=== PATIENT | male | born 1990 | race Caucasian/White ===

== ENCOUNTER 2021-11-07 05:58 | Emergency (ER) | payer OTHER, SELFPAY ==
[2021-11-07 06:03] VITALS: BP 144/84; PULSE 95; RESP 18; TEMP 36.9; O2SAT 97
--- NOTE | 2021-11-07 06:39 | ED.BACK ---
HPI - Back Pain/Injury General Chief Complaint: Back Pain/Injury Stated Complaint: back pain radiating down left leg Time Seen by Provider: 11/07/21 06:28 Source: patient History of Present Illness HPI Narrative: Patient presents with left-sided back pain. Patient ports a history of herniated disc and laminectomy. Reports he usually manages his symptoms with chiropractor. This episode has been lasting for approximately 2 weeks. First noted when he was putting on his pants and he felt a pinch in his back he saws his chiropractor and had a some relief however his symptoms appear to have worsened and he is having a hard time sleeping due to his pain so he came to the ER for evaluation. His pain is on his left back radiates down his bottom and into his foot gets worse with bending and twisting movements. He denies any focal numbness or weakness denies any bowel or bladder incontinence he denies any IV drug use or any major changes in weight. Review of Systems Review of Systems: CONSTITUTIONAL: Denies fever, chills, or sweats. EYES: Denies visual changes, redness, or discharge. ENT: Denies rhinorrhea, congestion, sore throat, or otalgia. CARDIOVASCULAR: Denies chest pain, palpitations, or edema. RESPIRATORY: Denies cough or dyspnea. GASTROINTESTINAL: Denies abdominal pain, nausea, vomiting, or diarrhea. GENITOURINARY: Denies dysuria or hematuria. SKIN: Denies rash or itching. MUSCULOSKELETAL: Denies back pain, joint pain, or myalgia. NEUROLOGIC: Denies headache, numbness, dizziness, or weakness. PSYCHIATRIC: Denies anxiety or depression. All systems reviewed & are unremarkable except as noted in HPI and below Exam Narrative: GENERAL: Well-appearing, well-nourished, and in no acute distress. HEAD: Normocephalic, atraumatic. EYES: PERRLA and EOMI. ENT: Nares clear, no rhinorrhea or epistaxis. Mucous membranes moist. NECK: Supple. No masses. No JVD Back: Mild tenderness palpation on the left paraspinal area around L4 no midline tenderness EXTREMITIES: Normal range of motion. No edema. SKIN: Warm, dry, no rash. NEURO: No focal deficits. Alert and oriented x3. 5 out of 5 strength in the bilateral lower with knee flexion extension and plantar and dorsi flexion PSYCH: Normal mood and affect. Course Vital Signs Vital signs: Vital Signs Temperature 36.9 C 11/07/21 06:03 Pulse Rate 95 11/07/21 06:03 Respiratory Rate 18 11/07/21 06:03 Blood Pressure 144/84 H 11/07/21 06:03 Pulse Oximetry 97 11/07/21 06:03 Temperature 36.9 C 11/07/21 06:03 Pulse Rate 95 11/07/21 06:03 Respiratory Rate 18 11/07/21 06:03 Blood Pressure 144/84 H 11/07/21 06:03 Pulse Oximetry 97 11/07/21 06:03 MDM - Back Pain/Injury MDM Narrative Medical decision making narrative: H&P as above, vss, pt looks clinically well, exam without focal neurological deficits, labs/img considered, symptomatic relief available as needed, on reevaluation pt continues to looks clinically well patient reported feeling improved. Suspect superficial soft tissue back pain, dns cauda equina, conus medullaris, fracture, cord compromise. plan to tx/monitor as op w/ pcm f/u findings/plan discussed with pt, pt agree/comfortable with plan, return precautions given
[2021-11-07] MEDS: KETOROLAC 30 MG/ML VIAL (*BKC) IM (06:51)
[2021-11-07] MEDS: CYCLOBENZAPRINE HCL 10 MG TABLET PO (06:51)
[2021-11-07] MEDS: traMADol HCL (*CRX) 50 MG TABLET PO (07:34)
[2021-11-07 07:53] VITALS: BP 111/76; PULSE 79; RESP 16; O2SAT 95
== END 2021-11-07 07:53 | disposition home or self-care (01) ==
PROVIDERS: Emergency Provider Emergency Medicine; PCP Internal Medicine
DX: M54.9 Dorsalgia, unspecified (principal)
CPT/HCPCS: 96372; 99283; A9270; J1885

== ENCOUNTER 2024-02-24 12:52 | Outpatient (CLI) | payer OTHER, SELFPAY ==
[2024-02-24 16:12] LABS: Lithium < 0.2 mmol/L (0.6-1.2)
== END 2024-02-24 12:53 | disposition home or self-care (01) ==
LOC: ANHLAB 12:57
PROVIDERS: PCP Internal Medicine; Visit Provider Nurse Practitioner Psychiatric/Mental Health
DX: F31.31 Bipolar disorder, current episode depressed, mild (principal); F41.1 Generalized anxiety disorder; R53.83 Other fatigue; R63.4 Abnormal weight loss; L65.8 Other specified nonscarring hair loss; Z79.899 Other long term (current) drug therapy
CPT/HCPCS: 36415; 80178

== ENCOUNTER 2024-04-29 10:48 | Outpatient (CLI) | payer OTHER, SELFPAY ==
[2024-04-29 11:27] LABS: Basophils Percent Auto 0.6 % (0.2-1.2); Eosinophils Absolute Auto 0.1 K/mm3 (0-0.3); Eosinophils Percent Auto 2.1 % (0-4.4); Hematocrit 47.7 % (42.0-52.0); Hemoglobin 16.1 g/dL (14.0-18.0); Immature Granulocyte Absolute 0.02 K/mm3 (0.00-0.031); Immature Granulocyte Percent A 0.3 % (0-0.5); Lymphocytes Absolute Auto 1.43 K/mm3 (0.9-3.2); Mean Corpuscular HGB Conc 33.8 g/dl (32-36); Mean Corpuscular Hemoglobin 31.7 pg (26-34); Mean Corpuscular Volume 93.9 fl (80-100); Mean Platelet Volume 10.1 fl (7.4-10.4); Monocytes Absolute Auto 0.5 K/mm3 (0.1-0.6); Monocytes Percent Auto 7.8 % (2.6-8.5); Neutrophils Absolute Auto 4.6 K/mm3 (1.3-6.7); Neutrophils Percent Auto 68.2 % (45.5-73.1); Platelet Count Result 301 k/mm3 (150-375); Red Blood Count 5.08 M/mm3 (4.6-6.20); Red Cell Distribution Width 12.2 % (11.5-14.5); White Blood Count 6.8 K/mm3 (4.5-10.0)
[2024-04-29 11:46] LABS: Alanine Aminotransferase 22 U/L (6-50); Albumin Level 4.9 g/dL (3.5-5.1); Alkaline Phosphatase 65 U/L (38-126); Anion Gap 6 mmol/L (4-12); Aspartate Amino Transferase 28 U/L (17-59); Bilirubin,Total 0.8 mg/dL (0.2-1.3); Blood Urea Nitrogen 12 mg/dL (9-20); Calcium 9.6 mg/dL (8.4-10.2); Carbon Dioxide 30 mmol/L (22-30); Chloride 106 mmol/L (98-107); Cholesterol 198 mg/dL (0-200); Estimated Glomerular Filt Rate > 60; Glucose 96 mg/dL (65-110); HDL Direct 46 mg/dL; Sodium 142 mmol/L (137-145); Triglycerides 77 mg/dL (<150)
[2024-04-29 11:57] LABS: LDL Cholesterol Direct 113 mg/dL
[2024-04-29 12:06] LABS: Hemoglobin A1C 4.8 % (<5.7)
[2024-04-29 13:47] LABS: Lithium < 0.2 mmol/L (0.6-1.2)
[2024-04-29 13:59] LABS: Free T4 Free Thyroxine 0.97 ng/mL (0.78-2.19)
== END 2024-04-29 10:49 | disposition home or self-care (01) ==
LOC: ANHLAB 10:51
PROVIDERS: PCP Internal Medicine; Visit Provider Nurse Practitioner Psychiatric/Mental Health
DX: F31.31 Bipolar disorder, current episode depressed, mild (principal); F41.1 Generalized anxiety disorder; R45.851 Suicidal ideations; R53.83 Other fatigue; Z79.899 Other long term (current) drug therapy; F12.90 Cannabis use, unspecified, uncomplicated; Z72.89 Other problems related to lifestyle
CPT/HCPCS: 36415; 80053; 80061; 80178; 83036; 84439; 84443; 85025

== ENCOUNTER 2025-06-29 09:52 | Outpatient (CLI) | payer OTHER, SELFPAY ==
--- OUTSIDE RECORDS SUMMARY | 2025-04-24 08:20 | XMS_ITS | Continuity of Care Document ---
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 Role Phone James Saeed MD Unavailable Unavailable Allergies, Adverse Reactions, Alerts Substance Reaction Status Criticality No Known Allergies Active No Inform ation Medications Medication Instructions Dosage Effective Dates (start - stop) Status Comments Truvada 200 mg-300 mg tablet TAKE 1 TABLET BY MOUTH EVERY DAY - Active buspirone 15 mg tablet take 2 tablet by oral route every day 30 MG - Active lithium carbonate 300 mg capsule take 1 capsule by oral route 2 times every day 300 MG - Active Fish Oil 1,200 mg (144 mg-216 mg) capsule daily - Active Vitamin D3 50 mcg (2,000 unit) capsule take 2 capsule by oral route every day 2 capsule - Active vitamin B complex tablet take 1 tablet by oral route every day 1 tablet - Active multivitamin tablet take 1 tablet by ora l route every day 1 tablet - Active Lexapro 20 mg tablet take 1 tablet by or al route every day 20 MG - Active Wellbutrin XL 150 mg 24 hr tablet, extended release take 1 tablet by oral route every day 150 MG - Active Procedures Procedure Date CBC, INC PLATELETS AND DIFFERENTIAL CHLAMYDIA AMPLIFIED PROBE TECHNIQUE NEISERRIA GONORRHOEAE, AMPLIFIED PROBE T ECHNIQUE COMPREHEN METABOLIC PANEL CMP HEPATITIS C ANTIBODY HIV-1 AG W/HIV-1 & HIV-2 AB MED LIST DOCD IN RCRD ROUTINE VENIPUNCTURE IL OFFICE [id number] BODY MASS INDEX DOCD SYST BP LT 130 MM HG DIAST BP < 80 MM HG CHLAMYDIA AMPLIFIED PROBE TECHNIQUE NEISERRIA GONORRHOEAE, AMPLIFIED PROBE T ECHNIQUE HIV-1 AG W/HIV-1 & HIV-2 AB HEPATITIS C ANTIBODY MED LIST DOCD IN RCRD ROUTINE VENIPUNCTURE IL OFFICE [id number] BODY MASS INDEX DOCD SYST BP LT 130 MM HG DIAST BP < 80 MM HG CBC, INC PLATELETS AND DIFFERENTIAL COMPREHEN METABOLIC PANEL CMP CHLAMYDIA AMPLIFIED PROBE TECHNIQUE NEISERRIA GONORRHOEAE, AMPLIFIED PROBE T ECHNIQUE Trichomonas vaginalis, amplified probe t echnique FOLIC ACID (S) (FOLATE) HEPATITIS C ANTIBODY HEMOGLOBIN A1C HGA1C, GLYCO HIV-1 AG W/HIV-1 & HIV-2 AB LIPID PANEL THYROID STIMULATION HORMONE(TSH) 2023 VITAMIN B12 (SERUM) VITAMIN D, 25-HYDROXY ROUTINE VENIPUNCTURE IL OFFICE [id number] BODY MASS INDEX DOCD SYST BP LT 130 MM HG DIAST BP < 80 MM HG GENERAL HEALTH PANEL CHLAMYDIA AMPLIFIED PROBE TECHNIQUE NEISERRIA GONORRHOEAE, AMPLIFIED PROBE T ECHNIQUE HEPATITIS C ANTIBODY HIV-1 AG W/HIV-1 & HIV-2 AB LIPID PANEL VITAMIN B12 (SERUM) VITAMIN D, 25-HYDROXY Pt inelig neg scrn depres ROUTINE VENIPUNCTURE IL PREVENTATIVE-EST: 18-39 BODY MASS INDEX DOCD SYST BP LT 130 MM HG DIAST BP < 80 MM HG GENERAL HEALTH PANEL FOLIC ACID (S) (FOLATE) HEMOGLOBIN A1C HGA1C, GLYCO HIV-1 AG W/HIV-1 & HIV-2 AB LIPID PANEL VITAMIN B12 (SERUM) VITAMIN D, 25-HYDROXY ROUTINE VENIPUNCTURE IL OFFICE [id number] BODY MASS INDEX DOCD SYST BP LT 130 MM HG DIAST BP < 80 MM HG OFFICE [id number] BODY MASS INDEX DOCD SYST BP LT 130 MM HG DIAST BP < 80 MM HG Chlamydia trachomatis and gonorrhoeae, D NA, Amp Probe Technique COMPREHEN METABOLIC PANEL CMP HEPATITIS B CORE IGM ANTIBODY HEPATITIS B SURFACE ANTIGEN (HBSAG) HIV-1 AG W/HIV-1 & HIV-2 AB HEPATITIS C ANTIBODY ROUTINE VENIPUNCTURE IL OFFICE [id number] BODY MASS INDEX DOCD SYST BP LT 130 MM HG DIAST BP < 80 MM HG ROUTINE VENIPUNCTURE IL PLATELET COUNT GENERAL HEALTH PANEL Chlamydia trachomatis and gonorrhoeae, D NA, Amp Probe Technique HIV-1 AG W/HIV-1 & HIV-2 AB LIPID PANEL URINALYSIS, REFLEX (UA) Brief Emotional/Behavioral A ssessment, With Scoring/Doct, Per Stndrd Instrument Clin depression screen doc Brief Emotional/Behavioral A ssessment, With Scoring/Doct, Per Stndrd Instrument ROUTINE VENIPUNCTURE IL OFFICE [id number] BODY MASS INDEX DOCD SYST BP LT 130 MM HG DIAST BP < 80 MM HG THERAPEUTIC, PROPHYLACTIC OR DIAG INJ IN TRA-MUSCLR/SQ Brief Emotional/Behavioral A ssessment, With Scoring/Doct, Per Stndrd Instrument Pt inelig neg scrn depres GENERAL HEALTH PANEL LIPID PANEL NEISERRIA GONORRHOEAE, AMPLIFIED PROBE T ECHNIQUE ROUTINE VENIPUNCTURE PREVENTATIVE-EST: 18-39 BODY MASS INDEX DOCD SYST BP LT 130 MM HG DIAST BP < 80 MM HG INFLUENZA, RAPID INFLUENZA B, RAPID - OFFICE LAB 020 RAPID STREP A Brief Emotional/Behavioral A ssessment, With Scoring/Doct, Per Stndrd Instrument Clin depression screen doc OFFICE [id number] BODY MASS INDEX DOCD SYST BP LT 130 MM HG DIAST BP 80-89 MM HG Brief Emotional/Behavioral A ssessment, With Scoring/Doct, Per Stndrd Instrument Clin depression screen doc GENERAL HEALTH PANEL LIPID PANEL URINALYSIS, REFLEX (UA) ROUTINE VENIPUNCTURE OFFICE [id number] BODY MASS INDEX DOCD SYST BP LT 130 MM HG DIAST BP < 80 MM HG Advance Directives Directive Yes / No Effective Date File Name No Information Encounters Encounter Description Practice Location Reason(s) For Visit Diagnoses Date Provider Providers [facility] [address], [place], [place], [id number] , tel: [phone] [facility] No Information 5 Darlin Ramirez. [address], [id number], . tel:[phone] Referring Provider: Pamela Vu, [address] [place] [address], [address]. tel:[phone] OFFICE UEEQA-RLX-GG PANDED [employer] [place], [address], [place], [place], [address] , tel: [phone] [employer] [place] 3 month (chief complaint) Body mass index [BMI] 34.0-34.9, adultBipolar disorder, unspecifiedOth er levers lace machine operator (current) drug therapy 5 Horace Santiago. [address] [place] [address], [address], [place]. tel:[phone] Referring Provider: Radha David, [address] [place] [address], [address] . tel:[phone] [employer], [address], [place], [place], [address] , tel: [phone] [employer] [facility] No Information Darlin Ramirez. [address], [id number], . tel:[phone] Referring Provider: Sherlyn Crowe, [address] [place] [address], [address] . tel:[phone] OFFICE ZDYDE-GGZ-FY TAILED [facility], [address], [place], [place], [address] , [place] tel: [phone] [facility] 3 mo appt (chief complaint)C hronic Conditions (chief complaint) Body mass index [BMI] 33.0-33.9, adultBipolar disorder, unspecifiedOth er custodial (current) drug therapy Dec-0 5 Amrita Plata. [address] [place] [address], [id number], [place]. tel:[phone] Referring Provider: Radha David, [address] [place] [address], [address] . tel:[phone] [facility], [address], [place], [place], [address] , [place] tel: [phone] [facility] Outpatient Services No Information 4 Darlin Ramirez. [address] [place] [address], [place] [address], [place], [place], [id number], . tel:[phone] Referring Provider: Radha David, [address] [place] [address], [address] . tel:[phone] OFFICE JKRSE-DNT-KX [facility], [address], [place], [place], [address] , [place] tel: [phone] [facility] 3 month appt (chief complaint)C hronic Conditions (chief complaint) Bipolar disorder, unspecifiedVit orozco D deficiency, unspecifiedOth er specified abnormal findings of blood chemistryOther intervertebral disc displacement, lumbar regionBody mass index [BMI] 32.0-32.9, adult Aug- 4 Cas Garcia. [address] [place] [address], [id number], [place]. tel:[phone] Referring Provider: Radha David, [address] [place] [address], [address] . tel:[phone] [facility], [address], [place], [place], [address] , [place] tel: [phone] [facility] Outpatient Services No Information 0 4 Darlindominick Ramirez. [address] [facility], [address], [id number], [place]. tel:[phone] Referring Provider: Pamela Vu, [address] [place] [address], [address]. tel:[phone] PREVENTATIVE -EST: 18-39 [facility], [address], [place], [place], [address] , [place] tel: [phone] [facility] preventive exam (chief complaint)a dditional. (chief complaint)C hronic Conditions (chief complaint)c hronic conditions (chief complaint) Encounter for general adult medical examination without abnormal findingsBody mass index [BMI] 32.0-32.9, adultLumbar herniated discBipolar disorder, unspecifiedOth er specified abnormal findings of blood chemistryVitam in D deficiency, unspecifiedOth er levers lace machine operator (current) drug therapyBite of animal flea 4 Horace Santiago. [address] [place] [address], [address], [place]. tel:[phone] Referring Provider: Radha David, [address] [place] [address], [address] . tel:[phone] [facility], [address], [place], [place], [address] , [place] tel: [phone] [facility] No Information 0 3 Mine Lennon. [address] [place] [address], [id number], [place]. tel:[phone] [facility], [address], [place], [place], [address] , [place] tel: [phone] [facility] Outpatient Services No Information 3 Darlin Ramirez. [address] [facility], [address], [id number], [place]. tel:[phone] Referring Provider: Pamela Vu, [address] [place] [address], [address]. tel:[phone] OFFICE UIWFU-RZM-VV [facility] [employer] [place], [address], [place], [place], [address] , [place] tel: [phone] [employer] [facility] 2 month appt (chief complaint) Body mass index [BMI] 33.0-33.9, adultBipolar disorder, unspecifiedOth er custodial (current) drug therapyContact w and exposure to infect w a sexl mode of transmissHair loss 3 [facility]. [address] [place] [address], [address], [place]. tel:[phone] Referring Provider: Radha David, [address] [place] [address], [address] . tel:[phone] OFFICE DJYBU-YMU-SZ [employer] [place], [address], [place], [place], [address] , [place] tel: [phone] [employer] [facility] 1 month (chief complaint) Body mass index [BMI] 32.0-32.9, adultBipolar disorder, unspecifiedOth er levers lace machine operator (current) drug therapyContact w and exposure to infect w a sexl mode of transmiss 3 Horace Santiago. [address] [place] [address], [address], [place]. tel:[phone] Referring Provider: Radha David, [address] [place] [address], [address] . tel:[phone] [employer] [facility], [address], [place], [place], [address] , [place] tel: [phone] [facility] No Information 3 Darlin Ramirez. [address], [id number], [place]. tel:[phone] Referring Provider: Pamela Vu, [address] [place] [address], [address]. tel:[phone] OFFICE YCXMX-ZST-RY PANDED [facility], [address], [place], [place], [address] , tel: [phone] [facility] 3 month (chief complaint) Body mass index [BMI] 33.0-33.9, adultBipolar disorder, unspecifiedScr eening for STD (sexually transmitted disease)Screen ing for HIV (human immunodeficien cy virus)Human immunodeficien cy virus [HIV] counseling 3 Horace Santiago. [address] [place] [address], [address], [place]. tel:[phone] Referring Provider: Radha David, [address] [place] [address], [address] . tel:[phone] [facility], [address], [place], [place], [address] , [place] tel: [phone] [facility] No Information 3 Mine Lennon. [address] [place] [address], [id number], [place]. tel:[phone] [facility], [address], [place], [place], [address] , [place] tel: [phone] [facility] Hyperlipidemia , unspecifiedBip olar disorder, unspecified 3 Cas Garcia. [address] [place] [address], [id number], [place]. tel:[phone] Referring Provider: Radha David, [address] [place] [address], [address] . tel:[phone] [facility], [address], [place], [place], [address] , [place] tel: [phone] [facility] Outpatient Services No Information 3 Darlin Ramirez. [address] [facility], [place] [address], [place], [place], [address], . tel:[phone] Referring Provider: Radha David, [address] [place] [address], [address] . tel:[phone] [facility], [address], [place], [place], [address] , tel: [phone] [facility] Outpatient Services No Information 3 Darlin Ramirez. [address] [facility], [facility] [address], [place], [place], [address], . tel:[phone] Referring Provider: Sherlyn Crowe, [address] [place] [address], [address] . tel:[phone] OFFICE JNYRX-BEB-YB TAILED [facility], [address], [place], [place], [address] , tel: [phone] [facility] Chronic Conditions (chief complaint)P atient encounter (chief complaint) Body mass index [BMI] 34.0-34.9, adultBipolar disorder, unspecifiedHyp erlipidemia, unspecifiedScr eening for STD (sexually transmitted disease) 3 Amrita Plata. [address] [place] [address], [id number], [place]. tel:[phone] Referring Provider: Radha David, [address] [place] [address], [address] . tel:[phone] [facility], [address], [place], [place], [address] , [place] tel: [phone] [facility] Internal Medicine injection (chief complaint) Contact w and exposure to infect w a sexl mode of transmiss 0 Cas Garcia. [address] [place] [address], [id number], [place]. tel:[phone] Referring Provider: Radha David, [address] [place] [address], [address] . tel:[phone] PREVENTATIVE -EST: 18-39 [facility], [address], [place], [place], [address] , tel: [phone] [facility] Internal Medicine Chronic Conditions (chief complaint) Well adult examContact with and (suspected) exposure to infections with a predominantly sexual mode of transmissionMa jose eduardo depressive disorder, recurrent, moderateOther seasonal allergic rhinitisBody mass index (BMI) 32.0-32.9, adult Nov-0 2-202 0 Cas Garcia. [address] [place] [address], [id number], [place]. tel:[phone] Referring Provider: Radha David, [address] [place] [address], [address] . tel:[phone] [facility], [address], [place], [place], [address] , tel: [phone] [facility] Internal Medicine Sore throat. (chief complaint) Sore throat Nov- 6-202 0 Cas Garcia. [address] [place] [address], [id number], [place]. tel:[phone] Referring Provider: Radha David, [address] [place] [address], [address] . tel:[phone] [facility]ICE [facility], [address], [place], [place], [address] , tel: [phone] [facility] Internal Medicine Chronic Conditions (chief complaint) Body mass index (BMI) 39.0-39.9, adultModerate episode of recurrent major depressive disorderPrimar y insomniaMorbid (severe) obesity due to excess caloriesHyperh idrosis of axillaHyperlip idemia LDL goal <100 7-201 9 Amrita Plata. [address] [place] [address], [id number], [place]. tel:[phone] Referring Provider: Radha David, [address] [place] [address], [address] . tel:[phone] OFFICE XOJZR-VRW-VG MP-MED [facility], [address], [place], [place], [address] , [place] tel: [phone] [facility] Internal Medicine Chronic Conditions (chief complaint)o ther (chief complaint) Body mass index (BMI) 40.0-44.9, adultMorbid (severe) obesity due to excess caloriesDysthy miaPrimary insomniaPerspi ration excessiveChron ic midline low back pain without sciaticaOther chronic painOn pre-exposure prophylaxis for HIV 9 Amrita Plata. [address] [place] [address], [id number], [place]. tel:[phone] Referring Provider: Radha David, [address] [place] [address], [address] . tel:[phone] Family History Family Member Type Diagnosis Age At Onset Maternal grandmother Problem (finding) malignant melan ryne Mother Problem (finding) Alive and well Maternal grandmother Problem (finding) Alive and well Mother Problem (finding) Thyroid disorder Father Problem (finding) Alive and well Brother Problem bipolar Father Problem bipolar Payers Payer name Insurance type Covered green party ID Amanda padilla(s) [employer] OPEN ACCESS CI [id number] Social History Type Description Quantity Date Captured Comments Sex Male Smoking Status No Information Sexual Orientation Bisexual Gender Identity Male Chief Complaint And Reason For Visit No Information Reason For Referral Reason For Referral No Information Plan Of Treatment Date Type Action Status Goal Dietary management education , guidance, and counseling completed Goal Dietary management education , guidance, and counseling completed Goal Dietary management education , guidance, and counseling completed Goal Dietary management education , guidance, and counseling completed Goal Dietary management education , guidance, and counseling completed Goal Dietary management education , guidance, and counseling completed Goal Dietary management education , guidance, and counseling completed Goal Dietary management education , guidance, and counseling completed Goal Dietary management education , guidance, and counseling completed Goal Dietary management education , guidance, and counseling completed Goal Dietary management education , guidance, and counseling completed History Of Present Illness Encounter Date Complaint History Of Dena leal Illness 3 month 3 mo appt 3 mo appt:start Bupropion 150 mg for about a month (Dr. Jewels Bello)sees her once every 3 months depending on medication changePast appt: n/aFuture appt: n/aAdvance directive: doesn't want forms Chronic Conditions *See Chronic Conditions [facility] Chronic Conditions *See Chronic Conditions [facility] 3 month appt pt due for:n/aRe cent visits:Psych - TodayFuture appt:Psych - every 3 months Vaccinations due:COVID - 2 doses at pt's pharmacyCOVID booster - pt refusesFlu - pt refusesTD/TDAP - pt denies recentOutstanding referrals:n/a chronic conditions *See Chronic Conditions [facility] Chronic Conditions *See Chronic Conditions [facility] additional. On exam it was n oted that he had multiple bites on his legs. States that his cats have fleas. He is working on getting this taken care of. States that this is getting better.Pressure was low today. He denies any issues with fatigue or dizziness. Only drink pineapple juice today. Did not eat or drink anything else. States he feels fine. preventive exam Men's preventive visit. Patient Health Questionnaire (PHQ-2) is negative. Patient is on a healthy diet. The patient has no weight gain/loss. Marital status: Single. Relevant history is positive for alcohol use. Relevant history is negative for tobacco use, passive smoke exposure, passive vaping exposure. 2 month appt patient is here for 3 month follow-up after starting PrEP in the form of Truvada.He has bipolar disorder.He follows with nurse practitioner Jewels Bello. He is currently taking buspirone, Lexapro and lithium. Follows every 3 monthsHe started seeing a counselor. He sees every 2 weeks. With respect to PrEp, he is bisexual. He was previously on Truvada. He has been taking this for 3 months and denies any side effects.He has not been sexually active in any form since last OV but he does engage in receiving anal sex and giving oral sex to both male partners. Prior to starting Truvada HIV, hepatitis screening and hep C was negative. He also had negative STI screening 3 months ago.We will continue on HIV and STI screening with follow-ups every 3 months and renal function every 6 months We reviewed the importance of using condoms and signs of HIV.No new sexual partners. Hasn't been sexually active since last office visit. So no STI screening todayPt states that he feels like his bipolar disorder is still currently stable. Has been on lithium since November.Pt states that he is noticing hair loss about a month and a half ago. He states that he has tried changing shampoos and conditioners to see if that was the problem. He is noticing more hair in drain. Not noticing any patches. Pt has a lab order for psychiatrist.Past Appt psychiatrist- March 2023 1 month patient is here for 1 month follow-up after starting PrEP in the form of Truvada.He has bipolar disorder.He follows with nurse practitioner Jewels Bello. He is currently taking buspirone, Lexapro and lithium.He started seeing a counselor. He saw him once and has his second appointment tomorrow. He will be seeing him every 2 weeks. He feels that his bipolar is stable.With respect to PrEp, he is bisexual. He was previously on Truvada. He has been taking this for 1 month and denies any side effects.He has not had any new partners since last office visit but he does engage in receiving anal sex and giving oral sex to both male partners. Prior to starting Truvada HIV, hepatitis screening and hep C was negative. He also had negative STI screening last month as well.We will plan on HIV and STI screening with follow-ups every 3 months and renal function every 6 months after initial 3-month CMP. We reviewed the importance of using condoms and signs of HIV. 3 month Patient is here for 3-month follow-up after reestablishing with our office for the first time after the pandemic.For his bipolar disorder he has established with a psychiatric healthcare provider. He states that it is a nurse practitioner named Jewels Bello. He has continued buspirone 15 mg twice a day and escitalopram 20 mg once a day that was prescribed by our office and was started on lithium twice a day. This was started 2 weeks ago. He has a follow-up appointment next week. He is also scheduled to see a counselor.He feels that his moods are more stable. He feels that he has more depressive symptoms than julio. Denies any SI/HI and is overall feeling better.He was previously on oral PrEP in the form of Truvada. It was previously provided by the health department. This was stopped in 2019. He says that he was on it for several years. He says that [employer], the company, provides a co-pay card that covers up to $3600 a year and this is pretty well covered with insurance. He is bisexual and since his last office visit engaged in receiving anal sex and giving oral sex to both male partners.His last HIV test in October was negative. He also had STI screening at that time.He denies any signs or symptoms of acute illness or infection. He is without fever, STI symptoms like pain or discharge. No LAD on exam. He has no personal or family history of kidney disease.We will test for hepatitis C in addition to routine STI screening. He had lipid levels checked in October.We discussed signs of acute HIV infection including lymphadenopathy, fever, malaise and rash.He understands he will see us back after receiving 1 month of oral PrEP and 3 months after starting treatment then every 3 months. We will continue to screen for bacterial STIs every 3 months. Patient encounter The patient wa s previously receiving Truvada prescription from the local health department.He has been off of this since 2019.He reports trying to stick with one consistent sexual partner due to his bipolar.is requesting STI testing todayHe is also interested in restarting his Truvada but does not wish to return to the health department.is agreeable to optimize his mental health prior to restarting the prescriptionHe denies the use of condoms but was encouraged to use them in order to prevent STIs. Chronic Conditions *See Chronic Conditions HPI injection pt. came in toda y for two Bicillin injection 1,200,000 units per 2 ML lot# [id number] 03/27/20 left hip and right hip. Chronic Conditions *See Chronic Conditions HPI Sore throat. Pt came in with sore throat. tested pt for influenza, and strep on parking lot due to the virus pandemia. Pt vitals are per del, tests results were negative.Per Dr. Cardozo the pt was informed to take tylenol and gargle salt water, and to give us a call after a few days. Chronic Conditions *See Chronic Conditions HPI Chronic Conditions *See Chronic Conditions HPI other The patient pres ents to establish care with PCP. He states he has not seen a previous primary care provider routinely. 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 He is up-to-date on vaccinations. Medical, surgical, and family history was reviewed. Vital signs are normal today. 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 Related to Bite of animal flea Continue on Truvada. 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 Continue on supplement Related to Other specified abnormal findings of blood chemistry call if you develop any back issues or painWe discussed the importance of stretching and ways to avoid injury. Related to Lumbar herniated disc Continue on current medication and follow with your therapist and psychiatric provider. Related to Bipolar disorder, unspecified We will check vitami n D levels today. Continue on supplement. Related to Vitamin D deficiency, unspecified Personal and family medical history reviewed and updated. Medications reviewed and continue as directed. Continue exercise as tolerated and maintain healthy diet. Discussed weight, diet, exercise, immunizations, and healthy lifestyle.flu shot recommended this fall Related to Encounter for general adult medical examination without abnormal findings Disease process Giving encouragement to exercise Related to Body mass index (BMI) 32.0-32.9, adult Dietary management e ducation, guidance, and counseling Related to Body mass index (BMI) 32.0-32.9, adult I did not notice any areas of patches without hair. Keep an eye on this. We will check thyroid function today. Related to Hair loss As above.Call with a ny questions or concernslabs for psychiatry as well as HIV, cmp, chlamydia, gonorrhea, rprReturn in 2 months Related to Contact w and exposure to infect w a sexl mode of transmiss Please continue on t he generic Truvada.we will check kidney function, HIV and sexually transmitted infections.We discussed signs and symptoms of HIV and the importance of using condoms at all times. Related to Other custodial (current) drug therapy continue on current medications and follow-up with your psychiatric nurse practitioner as scheduled.Continue with counseling every 2 weeks Related to Bipolar disorder, unspecified Disease process Dietary management e ducation, guidance, and counseling Related to Body mass index (BMI) 33.0-33.9, adult Giving encouragement to exercise Related to Body mass index (BMI) 33.0-33.9, adult As above.Call with a ny questions or concernsNo labs todayReturn in 2 months Related to Contact w and exposure to infect w a sexl mode of transmiss Please continue on t he generic Truvada.Return in 2 months and we will check kidney function, HIV and sexually transmitted infections.We will check your kidney function every 6 months and he will return every 3 months to check HIV and sexually transmitted infection testing.We discussed signs and symptoms of HIV and the importance of using condoms at all times. Related to Other custodial (current) drug therapy We will continue on current medications and you will follow-up with your psychiatric nurse practitioner in March.Continue with counseling every 2 weeks Related to Bipolar disorder, unspecified Dietary management e ducation, guidance, and counseling Related to Body mass index (BMI) 32.0-32.9, adult Giving encouragement to exercise Related to Body mass index (BMI) 32.0-32.9, adult Disease process We will be doing lab testing prior to restarting Truvada.We will have you come back in 1 month and then again every 3 months after that. Related to Human immunodeficiency virus [HIV] counseling HIV test to be done today.Call with any questions or concernsReturn in 1 month Related to Screening for HIV (human immunodeficiency virus) We will screen today for HIV, chlamydia, gonorrhea, syphilis, Hepatitis C. Related to Screening for STD (sexually transmitted disease) We will continue on current medications and you will follow-up with your psychiatric nurse practitioner.You will be starting counseling.We also discussed the importance of exercise and healthy diet. Related to Bipolar disorder, unspecified Disease process Dietary management e ducation, guidance, and counseling Related to Body mass index (BMI) 33.0-33.9, adult Giving encouragement to exercise Related to Body mass index (BMI) 33.0-33.9, adult as stated aboveWe di scussed restarting your HIV prophylaxis.We will discuss this again at your next follow up.We do recommend using condoms with sexual activity Related to Screening for STD (sexually transmitted disease) We will check your c holesterol levels again today Related to Hyperlipidemia, unspecified I sent prescriptions for Lexapro 10 mg daily and BuSpar 15 mg twice daily to the pharmacy.If you are tolerating the Lexapro, you can increase this to 20 mg in 2 to 3 weeks.Please call me with an update if you need me to send an updated prescription prior to running out.Our behavioral health guidance services coordinator will be contacting you with resources for psychiatry and counseling.Please call the office if you do not tolerate the medications or if you develop suicidal ideations.We will check routine labs today.CBC, CMP, lipid panel, TSH, urinalysis as well as STI testing for HIV, chlamydia, gonorrhea, and syphilis.Please call with questions or concerns prior to next follow-up.Follow-up again in 3 months Related to Bipolar disorder, unspecified Giving encouragement to exercise Related to Body mass index (BMI) 34.0-34.9, adult Dietary management e ducation, guidance, and counseling Related to Body mass index (BMI) 34.0-34.9, adult Disease process try zyrtec over the counter to helpreturn to me yearlycall me with questions or concerns Related to Other seasonal allergic rhinitis Status: Able to self -manage condition. Goals: Your goal is to manage stress. No barriers to goal achievement have been identified.continue with the current medication from Dr. Roesn Related to Major depressive disorder, recurrent, moderate I will look into get ting you the IM dose of PenicillinI will call and let you know tomorroweither we can get it or we can order it from the health department to be delivered Related to Contact with and (suspected) exposure to infections with a predominantly sexual mode of transmission Dietary management e ducation, guidance, and counseling Related to Body mass index (BMI) 32.0-32.9, adult Giving encouragement to exercise Related to Body mass index (BMI) 32.0-32.9, adult Disease process routine yearly labs checked todayI will call you with the resultsreturn to me yearly for your physicalcall me with questions or concerns Practice social distancing to limit your exposure to others who may have the virus but do not have symptoms. This means stay at home. If you do go out, stay at least 6 feet away from others such as in line at the grocery store. Even if you stay at home, use hand forest pathologist and wash your hands frequently. Especially when you get your mail, go to the store, take the trash out and get deliveries. Other people touch these things and the virus can live on objects for several days. Avoid touching your face as this may bring the virus from your hands to a mucosal surface where it can infect your body. Related to Well adult exam We will continue to monitor your cholesterol levels.Follow-up again in 6 months.Continue to work on diet and exercise to improve this.No need to start medication at this time. Related to Hyperlipidemia LDL goal <100 You have lost over 7 pounds since her last appointment.Great job!Keep up the good work.Follow-up again in 6 months so we can recheck your cholesterol levels and weight.Please call the office if there's anything I can assist with. Related to Morbid (severe) obesity due to excess calories I will send a prescr iption for a medicated wipe to help with excessive sweating.I will let you know if this is approved by her insurance company. 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 Rosen at your upcoming appointment.Please call the office if there's anything I can assist with. Related to Primary insomnia Your depression has improved since starting Lexapro.This is managed by Dr. Rosen.Continue your medication as prescribed.Status: Able to self-manage condition. Goals: Your goal is to manage your medicine. Barriers: No barriers to goal achievement have been identified. Related to Moderate episode of recurrent major depressive disorder Dietary management e ducation, guidance, and counseling Related to Body mass index (BMI) 39.0-39.9, adult Weight loss Giving encouragement to exercise Related to Body mass index (BMI) 39.0-39.9, adult Continue to make hea lthy dietary choices and staying hydrated. Related to Morbid (severe) obesity due to excess calories We will check routin e labs today.CBC, CMP, lipid panel, TSH, and urinalysis.You report trying [id number] deodorants before.Please call if if you are interested in receiving Botox injections and would like further direction. Related to Perspiration excessive As per above. Related to Other chronic pain You report improveme nt since your back surgery.Continue seeing your chiropractor and call us if your pain worsens. Related to Chronic midline low back pain without sciatica This is managed by [facility].Continue your medication as prescribed. Related to On pre-exposure prophylaxis for HIV I will send a prescr iption for trazodone 50 mg daily as needed at bedtime for insomnia.As we discussed, I will also recommend trying melatonin again but taking the lowest dose such as a 2 or 3 mg tablet as this is the safest medication to help with sleeping.Hopefully your insomnia will improve once we get your depression and anxiety better managed. Related to Primary insomnia We will start Lexapr o 10 mg daily to better manage your anxiety and depression.As we discussed, this medication can take up to 6 weeks for a full effect.There is also a risk of withdrawal side effects if you abruptly stop the medication.Please call the office if you do not tolerate this or decide you no longer want to take it so we can inform you how to wean off the medication properly.Continue counseling.We will have you follow-up again in 6 weeks to determine how you're doing on the medication.If you decide you would rather Dr. Rosen purchasing manager/sales medications, you can cancel this appointment.Status: Not meeting treatment plan goals. Goals: Your goal is to manage your medicine. Barriers: No barriers to goal achievement have been identified. Related to Dysthymia Giving encouragement to exercise Related to Body mass index (BMI) 40.0-44.9, adult Dietary management e ducation, guidance, and counseling Related to Body mass index (BMI) 40.0-44.9, adult Weight loss Assessments Type Assessment Date No Information Patient Care Teams Name Effective Dates (start - stop) Status Members No Information
--- OUTSIDE RECORDS SUMMARY | 2025-06-29 04:00 | XMS_ITS ---
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 Name Role Phone Radha Cardozo DO Primary Care Provider Unavail able Jewels Bello Unavailable [phone] Allergies No Known Allergies REASON FOR VISIT Follow Up, Follow up psychological reason Medications Medication SIG (Take, Route, Frequency, Duration) Notes Start Date End Date Status Ibuprofen 800 MG Tablet Oral 11/20/2023 Not-Taking Melatonin *Pick strength-form from [employer] for eRX* 11/20/2023 Not-Taking Acetaminophen-Codein e #3 300-30 MG Tablet Oral 11/20/2023 Not-Taking Lexapro 20 MG Tablet Oral 11/20/2023 Not-Taking buPROPion HCl ER (XL) 150 MG Tablet Extended Release 24 Hour TAKE 1 TABLET BY MOUTH DAILY IN THE MORNING; Duration: 30 appointment needed Active EMTRICITABINE 200 MG-TENOFOVIR DISOPROXIL FUMARATE 300 MG TABLET *Reorder from [employer] for eRx and Interaction Alerts* 11/20/2023 Active Wellbutrin XL 150 MG Tablet Extended Release 24 Hour 1 tablet in the morning Orally Once a day; Duration: 30 days 06/29/2025 Active busPIRone HCl 15 MG Tablet 2 tabs in am Oral Once a day; Duration: 30 days 06/29/2025 09/27/2025 Active Escitalopram Oxalate 20 MG Tablet 1 tablet Oral Once a day; Duration: 30 days 06/29/2025 Active Pillager Carbonate 300 MG Capsule 1 capsule Oral Twice a day; Duration: 30 days 06/29/2025 Active Social History Tobacco Use: Social History Observation Description Date Details (start date - stop date) Unknown Sex Assigned At : Social History Observation Description Sex Assigned At Male Social History Miscellaneous: Social Info Question Answer Notes Advance Care Planning Are you your own decision-maker Yes Do you have Power of Soldering Inspector for Health or Medi scarlett? No Household: Social Info Question Answer Notes Household Marital status: single Number of adults in household: 1 Any household pets? Yes 3 cats Drug/Alcohol: Social Info Question Answer Notes Drugs Have you used drugs other than those for medical reasons in the past 12 months? Yes Caffeine Intake: 3-4 cups per day Tobacco Use: Social Info Question Answer Notes Tobacco Control (Standard) Tobacco use: Uses tobacco in other forms Additional Details Category Social Info Options Details Migrated Social History Migrated Social History Alcohol Intake: Occasional 01/26/2023,Tobacco Years: Former smoker 01/26/2023 Drug/Alcohol: Do you smoke marijuana? Admits Do you drink alcohol? Yes, NOT V MARINE OFTEN Vital Signs Blood pressure systolic 115 mm Hg 06/29/20 25 Blood pressure diastolic 71 mm Hg 025 Heart Rate 72 /min 06/29/2025 Respiratory Rate 17 /min 06/29/2025 Height 72.00 in 06/29/2025 Weight 248 lbs 06/29/2025 BMI 33.63 kg/m2 06/29/2025 Height-cm 182.88 cm 06/29/2025 Weight-kg 112.49 kg 06/29/2025 Encounters Encounter Location Date Provider Diagnosis [facility] [employer] [place] [id number] [address] 06/29/2025 Jewels Bello Bipolar disorder, current episode depressed, mild F31.31 ; Generalized anxiety disorder F41.1 ; Suicidal ideations R45.851 ; Other fatigue R53.83 ; 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 Depressed bipolar I disorder - hx discuss IOP programs- [facility] or [facility] patient waiting on IOP to check insurance and schedule Pillager 300 mg twice a day for depression and passive SI - improved SI thoughts Educated on all rx no plans or intent labs ordered - Patient has depression with low motivation and interest and self care, low energy discuss and educated on Wellbutrin- had hx Wellbutrin in past Wellbutrin XL 150 mg daily in am- improved monitor for julio therapy discuss - patient will find new therapist http_s://www.[employer]/milena fui-ecn-xfdmcyio- marijuana-adhd/ http_s://www.caroline .org/About-Mental -Illness/Mental-H ealth-Conditions http_s://[employer]/depressi on/the-cognitive- ozpnplnw-ld-isphe ssion#treatments http__s://www.nim .nih.gov/health/ topics/mental-hea lt-medications http__s://www.nam i.org/About-Menta l-Illness/Treatme nts/Mental-Health -Medications - educated on importance to have labs completed educated on all medications, benefits, side effects and risk, and educated on depression, anxiety, and ADHD, mood d/o and educated on compliance of medications, metabolic and movement d/o education appointment's, continue therapy discussion with patient about course of treatmentand patient instructions. education on serotonin syndrome educated on increase water intake and stay hydrated Lexapro 20 mg daily Pillager use reviewed. Risks include risks of toxicity, arrhythmias, cognitive impairment, changes in muscle coordination, weight gain, thyroid and parathyroid changes, polydipsia and polyuria, alopecia, tremor and teratogenicity ( defects). Recommend avoid in females (use contraception consistently). Routine lab monitoring may be required. Patient consented to treatment. Indications: acute julio (euphoric julio), bipolar prophylaxis, bipolar depression treatment or augmentation, unipolar depression as augmentation with antidepressants Average dose = I,500 mg/day, target serum level 0.8 Pillager is known to reduce risk of suicide. Mechanism of action: inhibits inositol monophosphatase, interfering with 2nd messengers Nuisance Side Effects: sedation, cognitive difficulties, decreased creativity, dry mouth, tremor, increased appetite, weight gain, polydipsia, polyuria, nausea, diarrhea, acne, alopecia Serious Side Effects: Thyroid: hypothyroidism (5%), goiter (3%) Cardiac: decrease in cardiac conduction leading to sick sinus syndrome, blocks SA node Teratogenicity: Ebstein's anomaly 2 in 1,000 Renal: chronic renal insufficiency (after 10-20 years), acute renal failure, polyuria occurs in 50-70% [lithium antagonizes anti-diuretic hormone (ADH)], diabetes insipidus in 10% (treat with amiloride) Drug-drug interactions: increase in lithium: NSAIDs, JESSEE inhibitors, angiotensin II antagonists educated on light box therapy and proper use for SAD continue therapyobtain labs PCP 2. Generalized anxiety disorder - Lexapro 20 mg daily Buspar 15 mg - Patient been taking 2 tabs in am and helped Medication Management and Follow-Up- Plan:- Schedule follow-up appointments every 2-3 months to monitor the patient's response to the medication regimen.- Reinforce the importance of avoiding recreational drug use due to potential neurotoxicity and interactions with prescribed medications. 3. Cannabis dependence -Recommend decrease/stop cannabis use as it can negatively impact mood, motivation, anxiety, sleep, focus/concentrati on/memory (vigilance, elasticity, processing and attention); can also contribute to development of psychosis.Cannabi s/marijuana information:http_ s://urmila.nih.gov/ publications/drug facts/cannabis-ma [facility]ian[facility]arehttp_s://w ww.[facility] hospitala.gov/mar sjautmL14.20: Cannabis dependence, uncomplicated 4. Fatigue -improved 5.Vaping- educted on decreasing vaping and cannabis use Smoking Education Do not smoke. Nicotine and other chemicals in cigarettes and cigars can cause lung damage. Ask your healthcare provider for information if you currently smoke and need help to quit. E-cigarettes or smokeless tobacco still contain nicotine. Talk to your healthcare provider before you use these products. education on decrease to stopping nicotine products and stop smoking hotline given Quit - Yes [place] Tobacco Quitline Call a Smoking Quitline The [employer] [place]'s Smoking Quitline, (8-823-21D-QUIT) Smokefree.gov, which connects you with your State's Quitline, (6-756-EMXWRGL) Veterans Smoking Quitline, (6-082-EGGYKVB) Long-term drug therapy 06/29/2025 Generalized anxiety disorder (ICD-10 - F41.1) Learning About Generalized Anxiety Disorder material was published, Generalized Anxiety Disorder: Care Instructions material was published 1. Depressed bipolar I disorder - hx discuss IOP programs- [facility] [place] or [facility] patient waiting on IOP to check insurance and schedule Pillager 300 mg twice a day for depression and passive SI - improved SI thoughts Educated on all rx no plans or intent labs ordered - Patient has depression with low motivation and interest and self care, low energy discuss and educated on Wellbutrin- had hx Wellbutrin in past Wellbutrin XL 150 mg daily in am- improved monitor for julio therapy discuss - patient will find new therapist http_s://www.[employer]/Prixinglevar jvi-rnb-qlbnodzw- marijuana-adhd/ http_s://www.caroline .org/About-Mental -Illness/Mental-H ealth-Conditions http_s://psychcen eHi [employer]depressi on/the-cognitive- rcivinba-ra-ddwxl ssion#treatments http__s://www.nim h.nih.gov/health/ topics/mental-hea lth-medications http__s://www.nam i.org/About-Menta l-Illness/Treatme nts/Mental-Health -Medications - educated on importance to have labs completed educated on all medications, benefits, side effects and risk, and educated on depression, anxiety, and ADHD, mood d/o and educated on compliance of medications, metabolic and movement d/o education appointment's, continue therapy discussion with patient about course of treatmentand patient instructions. education on serotonin syndrome educated on increase water intake and stay hydrated Lexapro 20 mg daily Pillager use reviewed. Risks include risks of toxicity, arrhythmias, cognitive impairment, changes in muscle coordination, weight gain, thyroid and parathyroid changes, polydipsia and polyuria, alopecia, tremor and teratogenicity ( defects). Recommend avoid in females (use contraception consistently). Routine lab monitoring may be required. Patient consented to treatment. Indications: acute julio (euphoric julio), bipolar prophylaxis, bipolar depression treatment or augmentation, unipolar depression as augmentation with antidepressants Average dose = I,500 mg/day, target serum level 0.8 Pillager is known to reduce risk of suicide. Mechanism of action: inhibits inositol monophosphatase, interfering with 2nd messengers Nuisance Side Effects: sedation, cognitive difficulties, decreased creativity, dry mouth, tremor, increased appetite, weight gain, polydipsia, polyuria, nausea, diarrhea, acne, alopecia Serious Side Effects: Thyroid: hypothyroidism (5%), goiter (3%) Cardiac: decrease in cardiac conduction leading to sick sinus syndrome, blocks SA node Teratogenicity: Ebstein's anomaly 2 in 1,000 Renal: chronic renal insufficiency (after 10-20 years), acute renal failure, polyuria occurs in 50-70% [lithium antagonizes anti-diuretic hormone (ADH)], diabetes insipidus in 10% (treat with amiloride) Drug-drug interactions: increase in lithium: NSAIDs, JESSEE inhibitors, angiotensin II antagonists educated on light box therapy and proper use for SAD continue therapyobtain labs PCP 2. Generalized anxiety disorder - Lexapro 20 mg daily Buspar 15 mg - Patient been taking 2 tabs in am and helped Medication Management and Follow-Up- Plan:- Schedule follow-up appointments every 2-3 months to monitor the patient's response to the medication regimen.- Reinforce the importance of avoiding recreational drug use due to potential neurotoxicity and interactions with prescribed medications. 3. Cannabis dependence -Recommend decrease/stop cannabis use as it can negatively impact mood, motivation, anxiety, sleep, focus/concentrati on/memory (vigilance, elasticity, processing and attention); can also contribute to development of psychosis.Cannabi s/marijuana information:http_ s://urmila.nih.gov/ publications/drug facts/cannabis-ma [facility] healthcaretp_s://w blane.[facility] hospitala.gov/mar gpmbxhP70.20: Cannabis dependence, uncomplicated 4. Fatigue -improved 5.Vaping- educted on decreasing vaping and cannabis use Smoking Education Do not smoke. Nicotine and other chemicals in cigarettes and cigars can cause lung damage. Ask your healthcare provider for information if you currently smoke and need help to quit. E-cigarettes or smokeless tobacco still contain nicotine. Talk to your healthcare provider before you use these products. education on decrease to stopping nicotine products and stop smoking hotline given -Quit - Yes [place] Tobacco Quitline Call a Smoking Quitline The [employer] [place]'s Smoking Quitline, (4-644-36Z-QUIT) Smokefree.gov, which connects you with your State's Quitline, (9-038-SSUIOKV) Veterans Smoking Quitline, (1-949-RGQFCVJ) Long-term drug therapy 06/29/2025 Suicidal ideations (ICD-10 - R45.851) Suicidal Thoughts in a Family Member: Care Instructions material was published, Suicidal Thoughts and Behavior: Care Instructions material was published, Learning About Making a Suicide Safety Plan material was published 1. Depressed bipolar I disorder - hx discuss [place] programs- [facility] [facility] patient waiting on IOP to check insurance and schedule Pillager 300 mg twice a day for depression and passive SI - improved SI thoughts Educated on all rx no plans or intent labs ordered - Patient has depression with low motivation and interest and self care, low energy discuss and educated on Wellbutrin- had hx Wellbutrin in past Wellbutrin XL 150 mg daily in am- improved monitor for julio therapy discuss - patient will find new therapist http_s://www.[employer]/milena qka-xfa-hroqqgha- marijuana-adhd/ http_s://www.caroline .org/About-Mental -Illness/Mental-H ealth-Conditions http_s://psychCarnegie Speech.[employer]/depressi on/the-cognitive- rgsmfali-jg-tbtnr ssion#treatments http__s://www.nim h.nih.gov/health/ topics/mental-hea lth-medications http__s://www.nam i.org/About-Menta l-Illness/Treatme nts/Mental-Health -Medications - educated on importance to have labs completed educated on all medications, benefits, side effects and risk, and educated on depression, anxiety, and ADHD, mood d/o and educated on compliance of medications, metabolic and movement d/o education appointment's, continue therapy discussion with patient about course of treatmentand patient instructions. education on serotonin syndrome educated on increase water intake and stay hydrated Lexapro 20 mg daily Pillager use reviewed. Risks include risks of toxicity, arrhythmias, cognitive impairment, changes in muscle coordination, weight gain, thyroid and parathyroid changes, polydipsia and polyuria, alopecia, tremor and teratogenicity ( defects). Recommend avoid in females (use contraception consistently). Routine lab monitoring may be required. Patient consented to treatment. Indications: acute julio (euphoric julio), bipolar prophylaxis, bipolar depression treatment or augmentation, unipolar depression as augmentation with antidepressants Average dose = I,500 mg/day, target serum level 0.8 Pillager is known to reduce risk of suicide. Mechanism of action: inhibits inositol monophosphatase, interfering with 2nd messengers Nuisance Side Effects: sedation, cognitive difficulties, decreased creativity, dry mouth, tremor, increased appetite, weight gain, polydipsia, polyuria, nausea, diarrhea, acne, alopecia Serious Side Effects: Thyroid: hypothyroidism (5%), goiter (3%) Cardiac: decrease in cardiac conduction leading to sick sinus syndrome, blocks SA node Teratogenicity: Ebstein's anomaly 2 in 1,000 Renal: chronic renal insufficiency (after 10-20 years), acute renal failure, polyuria occurs in 50-70% [lithium antagonizes anti-diuretic hormone (ADH)], diabetes insipidus in 10% (treat with amiloride) Drug-drug interactions: increase in lithium: NSAIDs, JESSEE inhibitors, angiotensin II antagonists educated on light box therapy and proper use for SAD continue therapyobtain labs PCP 2. Generalized anxiety disorder - Lexapro 20 mg daily Buspar 15 mg - Patient been taking 2 tabs in am and helped Medication Management and Follow-Up- Plan:- Schedule follow-up appointments every 2-3 months to monitor the patient's response to the medication regimen.- Reinforce the importance of avoiding recreational drug use due to potential neurotoxicity and interactions with prescribed medications. 3. Cannabis dependence -Recommend decrease/stop cannabis use as it can negatively impact mood, motivation, anxiety, sleep, focus/concentrati on/memory (vigilance, elasticity, processing and attention); can also contribute to development of psychosis.Cannabi s/marijuana information:http_ s://urmila.nih.gov/ publications/drug facts/cannabis-ma cheyennehtjosephine_s://w blane.[facility] hospitala.gov/mar moqkiaI92.20: Cannabis dependence, uncomplicated 4. Fatigue -improved 5.Vaping- educted on decreasing vaping and cannabis use Smoking Education Do not smoke. Nicotine and other chemicals in cigarettes and cigars can cause lung damage. Ask your healthcare provider for information if you currently smoke and need help to quit. E-cigarettes or smokeless tobacco still contain nicotine. Talk to your healthcare provider before you use these products. education on decrease to stopping nicotine products and stop smoking hotline given -Quit - Yes [place] Tobacco Quitline Call a Smoking Quitline The [employer] [place]'s Smoking Quitline, (1-729-59Q-QUIT) Smokefree.gov, which connects you with your State's Quitline, (5-639-CBUHFLB) Veterans Smoking Quitline, (8-189-XBGVAAT) Long-term drug therapy 06/29/2025 Other fatigue (ICD-10 - R53.83) Fatigue: Care Instructions material was published 1. Depressed bipolar I disorder - hx discuss [place] programs- [facility] [facility] patient waiting on IOP to check insurance and schedule Pillager 300 mg twice a day for depression and passive SI - improved SI thoughts Educated on all rx no plans or intent labs ordered - Patient has depression with low motivation and interest and self care, low energy discuss and educated on Wellbutrin- had hx Wellbutrin in past Wellbutrin XL 150 mg daily in am- improved monitor for julio therapy discuss - patient will find new therapist http_s://www.[employer]/milena lvz-utc-sqjepvoq- marijuana-adhd/ http_s://www.caroline .org/About-Mental -Illness/Mental-H ealth-Conditions http_s://psychcen tral.com/depressi on/the-cognitive- kfmghkmc-mf-dfofk ssion#treatments http__s://www.nim h.nih.gov/health/ topics/mental-hea lth-medications http__s://www.nam i.org/About-Menta l-Illness/Treatme nts/Mental-Health -Medications - educated on importance to have labs completed educated on all medications, benefits, side effects and risk, and educated on depression, anxiety, and ADHD, mood d/o and educated on compliance of medications, metabolic and movement d/o education appointment's, continue therapy discussion with patient about course of treatmentand patient instructions. education on serotonin syndrome educated on increase water intake and stay hydrated Lexapro 20 mg daily Pillager use reviewed. Risks include risks of toxicity, arrhythmias, cognitive impairment, changes in muscle coordination, weight gain, thyroid and parathyroid changes, polydipsia and polyuria, alopecia, tremor and teratogenicity ( defects). Recommend avoid in females (use contraception consistently). Routine lab monitoring may be required. Patient consented to treatment. Indications: acute julio (euphoric julio), bipolar prophylaxis, bipolar depression treatment or augmentation, unipolar depression as augmentation with antidepressants Average dose = I,500 mg/day, target serum level 0.8 Pillager is known to reduce risk of suicide. Mechanism of action: inhibits inositol monophosphatase, interfering with 2nd messengers Nuisance Side Effects: sedation, cognitive difficulties, decreased creativity, dry mouth, tremor, increased appetite, weight gain, polydipsia, polyuria, nausea, diarrhea, acne, alopecia Serious Side Effects: Thyroid: hypothyroidism (5%), goiter (3%) Cardiac: decrease in cardiac conduction leading to sick sinus syndrome, blocks SA node Teratogenicity: Ebstein's anomaly 2 in 1,000 Renal: chronic renal insufficiency (after 10-20 years), acute renal failure, polyuria occurs in 50-70% [lithium antagonizes anti-diuretic hormone (ADH)], diabetes insipidus in 10% (treat with amiloride) Drug-drug interactions: increase in lithium: NSAIDs, JESSEE inhibitors, angiotensin II antagonists educated on light box therapy and proper use for SAD continue therapyobtain labs PCP 2. Generalized anxiety disorder - Lexapro 20 mg daily Buspar 15 mg - Patient been taking 2 tabs in am and helped Medication Management and Follow-Up- Plan:- Schedule follow-up appointments every 2-3 months to monitor the patient's response to the medication regimen.- Reinforce the importance of avoiding recreational drug use due to potential neurotoxicity and interactions with prescribed medications. 3. Cannabis dependence -Recommend decrease/stop cannabis use as it can negatively impact mood, motivation, anxiety, sleep, focus/concentrati on/memory (vigilance, elasticity, processing and attention); can also contribute to development of psychosis.Cannabi s/marijuana information:http_ s://urmila.nih.gov/ publications/drug facts/cannabis-ma chey[place]http_s://w ww.[facility].gov/mar ytusvmH59.20: Cannabis dependence, uncomplicated 4. Fatigue -improved 5.Vaping- educted on decreasing vaping and cannabis use Smoking Education Do not smoke. Nicotine and other chemicals in cigarettes and cigars can cause lung damage. Ask your healthcare provider for information if you currently smoke and need help to quit. E-cigarettes or smokeless tobacco still contain nicotine. Talk to your healthcare provider before you use these products. education on decrease to stopping nicotine products and stop smoking hotline given -Quit - Yes [place] Tobacco Quitline Call a Smoking Quitline The [employer] [place]'s Smoking Quitline, (1-940-00E-QUIT) Smokefree.gov, which connects you with your State's Quitline, (5-828-TWEVQYW) Veterans Smoking Quitline, (9-786-PRBCEPB) Long-term drug therapy 06/29/2025 [address] jail (current) drug therapy (ICD-10 - Z79.899) Medication Refill: Care Instructions material was published 1. Depressed bipolar I disorder - hx discuss [place] programs- [place] [facility] patient waiting on IOP to check insurance and schedule Pillager 300 mg twice a day for depression and passive SI - improved SI thoughts Educated on all rx no plans or intent labs ordered - Patient has depression with low motivation and interest and self care, low energy discuss and educated on Wellbutrin- had hx Wellbutrin in past Wellbutrin XL 150 mg daily in am- improved monitor for julio therapy discuss - patient will find new therapist http_s://www.[employer]/milena fno-yuq-lofoacim- marijuana-adhd/ http_s://www.caroline .org/About-Mental -Illness/Mental-H ealth-Conditions http_s://psychcen tral.com/depressi on/the-cognitive- xcpjygdg-kp-fknrf ssion#treatments http__s://www.[facility].nih.gov/health/ topics/mental-hea lth-medications http__s://www.nam i.org/About-Menta l-Illness/Treatme nts/Mental-Health -Medications - educated on importance to have labs completed educated on all medications, benefits, side effects and risk, and educated on depression, anxiety, and ADHD, mood d/o and educated on compliance of medications, metabolic and movement d/o education appointment's, continue therapy discussion with patient about course of treatmentand patient instructions. education on serotonin syndrome educated on increase water intake and stay hydrated Lexapro 20 mg daily Pillager use reviewed. Risks include risks of toxicity, arrhythmias, cognitive impairment, changes in muscle coordination, weight gain, thyroid and parathyroid changes, polydipsia and polyuria, alopecia, tremor and teratogenicity ( defects). Recommend avoid in females (use contraception consistently). Routine lab monitoring may be required. Patient consented to treatment. Indications: acute julio (euphoric julio), bipolar prophylaxis, bipolar depression treatment or augmentation, unipolar depression as augmentation with antidepressants Average dose = I,500 mg/day, target serum level 0.8 Pillager is known to reduce risk of suicide. Mechanism of action: inhibits inositol monophosphatase, interfering with 2nd messengers Nuisance Side Effects: sedation, cognitive difficulties, decreased creativity, dry mouth, tremor, increased appetite, weight gain, polydipsia, polyuria, nausea, diarrhea, acne, alopecia Serious Side Effects: Thyroid: hypothyroidism (5%), goiter (3%) Cardiac: decrease in cardiac conduction leading to sick sinus syndrome, blocks SA node Teratogenicity: Ebstein's anomaly 2 in 1,000 Renal: chronic renal insufficiency (after 10-20 years), acute renal failure, polyuria occurs in 50-70% [lithium antagonizes anti-diuretic hormone (ADH)], diabetes insipidus in 10% (treat with amiloride) Drug-drug interactions: increase in lithium: NSAIDs, JESSEE inhibitors, angiotensin II antagonists educated on light box therapy and proper use for SAD continue therapyobtain labs PCP 2. Generalized anxiety disorder - Lexapro 20 mg daily Buspar 15 mg - Patient been taking 2 tabs in am and helped Medication Management and Follow-Up- Plan:- Schedule follow-up appointments every 2-3 months to monitor the patient's response to the medication regimen.- Reinforce the importance of avoiding recreational drug use due to potential neurotoxicity and interactions with prescribed medications. 3. Cannabis dependence -Recommend decrease/stop cannabis use as it can negatively impact mood, motivation, anxiety, sleep, focus/concentrati on/memory (vigilance, elasticity, processing and attention); can also contribute to development of psychosis.Cannabi s/marijuana information:http_ s://urmila.nih.gov/ publications/drug facts/cannabis-ma [place]http_s://w ww.[facility].gov/mar utcvfrS00.20: Cannabis dependence, uncomplicated 4. Fatigue -improved 5.Vaping- educted on decreasing vaping and cannabis use Smoking Education Do not smoke. Nicotine and other chemicals in cigarettes and cigars can cause lung damage. Ask your healthcare provider for information if you currently smoke and need help to quit. E-cigarettes or smokeless tobacco still contain nicotine. Talk to your healthcare provider before you use these products. education on decrease to stopping nicotine products and stop smoking hotline given 5-Quit - Yes [place] Tobacco Quitline Call a Smoking Quitline The [employer] [place]'s Smoking Quitline, (4-245-99E-QUIT) Smokefree.gov, which connects you with your State's Quitline, (9-888-PISVSCY) Veterans Smoking Quitline, (0-633-OITPRVH) Long-term drug therapy 06/29/2025 Marijuana use (ICD-10 - F12.90) Marijuana Use: Care Instructions material was published, Learning About Cannabis Use Disorder material was published 1. Depressed bipolar I disorder - hx discuss IOP programs- [facility] [place] or [facility] patient waiting on IOP to check insurance and schedule Pillager 300 mg twice a day for depression and passive SI - improved SI thoughts Educated on all rx no plans or intent labs ordered - Patient has depression with low motivation and interest and self care, low energy discuss and educated on Wellbutrin- had hx Wellbutrin in past Wellbutrin XL 150 mg daily in am- improved monitor for julio therapy discuss - patient will find new therapist http_s://www.[employer]/milena tou-fix-lyjescmz- marijuana-adhd/ http_s://www.caroline .org/About-Mental -Illness/Mental-H ealth-Conditions http_s://psychcen eHi Car [employer]all.com/depressi on/the-cognitive- mdfbvwvn-iv-pidyx ssion#treatments http__s://www.nim .nih.gov/health/ topics/mental-hea [facility]-medications http__s://www.nam i.org/About-Menta l-Illness/Treatme nts/Mental-Health -Medications - educated on importance to have labs completed educated on all medications, benefits, side effects and risk, and educated on depression, anxiety, and ADHD, mood d/o and educated on compliance of medications, metabolic and movement d/o education appointment's, continue therapy discussion with patient about course of treatmentand patient instructions. education on serotonin syndrome educated on increase water intake and stay hydrated Lexapro 20 mg daily Pillager use reviewed. Risks include risks of toxicity, arrhythmias, cognitive impairment, changes in muscle coordination, weight gain, thyroid and parathyroid changes, polydipsia and polyuria, alopecia, tremor and teratogenicity ( defects). Recommend avoid in females (use contraception consistently). Routine lab monitoring may be required. Patient consented to treatment. Indications: acute julio (euphoric julio), bipolar prophylaxis, bipolar depression treatment or augmentation, unipolar depression as augmentation with antidepressants Average dose = I,500 mg/day, target serum level 0.8 Pillager is known to reduce risk of suicide. Mechanism of action: inhibits inositol monophosphatase, interfering with 2nd messengers Nuisance Side Effects: sedation, cognitive difficulties, decreased creativity, dry mouth, tremor, increased appetite, weight gain, polydipsia, polyuria, nausea, diarrhea, acne, alopecia Serious Side Effects: Thyroid: hypothyroidism (5%), goiter (3%) Cardiac: decrease in cardiac conduction leading to sick sinus syndrome, blocks SA node Teratogenicity: Ebstein's anomaly 2 in 1,000 Renal: chronic renal insufficiency (after 10-20 years), acute renal failure, polyuria occurs in 50-70% [lithium antagonizes anti-diuretic hormone (ADH)], diabetes insipidus in 10% (treat with amiloride) Drug-drug interactions: increase in lithium: NSAIDs, JESSEE inhibitors, angiotensin II antagonists educated on light box therapy and proper use for SAD continue therapyobtain labs PCP 2. Generalized anxiety disorder - Lexapro 20 mg daily Buspar 15 mg - Patient been taking 2 tabs in am and helped Medication Management and Follow-Up- Plan:- Schedule follow-up appointments every 2-3 months to monitor the patient's response to the medication regimen.- Reinforce the importance of avoiding recreational drug use due to potential neurotoxicity and interactions with prescribed medications. 3. Cannabis dependence -Recommend decrease/stop cannabis use as it can negatively impact mood, motivation, anxiety, sleep, focus/concentrati on/memory (vigilance, elasticity, processing and attention); can also contribute to development of psychosis.Cannabi s/marijuana information:http_ s://urmila.nih.gov/ publications/drug facts/cannabis-ma [place]http_s://w ww.[facility].gov/mar vvmdubS23.20: Cannabis dependence, uncomplicated 4. Fatigue -improved 5.Vaping- educted on decreasing vaping and cannabis use Smoking Education Do not smoke. Nicotine and other chemicals in cigarettes and cigars can cause lung damage. Ask your healthcare provider for information if you currently smoke and need help to quit. E-cigarettes or smokeless tobacco still contain nicotine. Talk to your healthcare provider before you use these products. education on decrease to stopping nicotine products and stop smoking hotline given 324-Quit - Yes [place] Tobacco Quitline Call a Smoking Quitline The [employer] [place]'s Smoking Quitline, (4-273-19A-QUIT) Smokefree.gov, which connects you with your State's Quitline, (5-172-PSIUADM) Veterans Smoking Quitline, (8-425-JWKJFYR) Long-term drug therapy 06/29/2025 Engages in vaping (ICD-10 - Z72.89) 1. Depressed bipolar I disorder - hx discuss IOP programs- [facility] [place] or [facility] patient waiting on IOP to check insurance and schedule Pillager 300 mg twice a day for depression and passive SI - improved SI thoughts Educated on all rx no plans or intent labs ordered - Patient has depression with low motivation and interest and self care, low energy discuss and educated on Wellbutrin- had hx Wellbutrin in past Wellbutrin XL 150 mg daily in am- improved monitor for julio therapy discuss - patient will find new therapist http_s://www.[employer]/milena shj-uxw-cnixdgmk- marijuana-adhd/ http_s://www.caroline .org/About-Mental -Illness/Mental-H ealth-Conditions http_s://[employer]/depressi on/the-cognitive- yjvsumeo-eb-vkceh ssion#treatments http__s://www.[facility].nih.gov/health/ topics/mental-hea lth-medications http__s://www.nam i.org/About-Menta l-Illness/Treatme nts/Mental-Health -Medications - educated on importance to have labs completed educated on all medications, benefits, side effects and risk, and educated on depression, anxiety, and ADHD, mood d/o and educated on compliance of medications, metabolic and movement d/o education appointment's, continue therapy discussion with patient about course of treatmentand patient instructions. education on serotonin syndrome educated on increase water intake and stay hydrated Lexapro 20 mg daily Pillager use reviewed. Risks include risks of toxicity, arrhythmias, cognitive impairment, changes in muscle coordination, weight gain, thyroid and parathyroid changes, polydipsia and polyuria, alopecia, tremor and teratogenicity ( defects). Recommend avoid in females (use contraception consistently). Routine lab monitoring may be required. Patient consented to treatment. Indications: acute julio (euphoric julio), bipolar prophylaxis, bipolar depression treatment or augmentation, unipolar depression as augmentation with antidepressants Average dose = I,500 mg/day, target serum level 0.8 Pillager is known to reduce risk of suicide. Mechanism of action: inhibits inositol monophosphatase, interfering with 2nd messengers Nuisance Side Effects: sedation, cognitive difficulties, decreased creativity, dry mouth, tremor, increased appetite, weight gain, polydipsia, polyuria, nausea, diarrhea, acne, alopecia Serious Side Effects: Thyroid: hypothyroidism (5%), goiter (3%) Cardiac: decrease in cardiac conduction leading to sick sinus syndrome, blocks SA node Teratogenicity: Ebstein's anomaly 2 in 1,000 Renal: chronic renal insufficiency (after 10-20 years), acute renal failure, polyuria occurs in 50-70% [lithium antagonizes anti-diuretic hormone (ADH)], diabetes insipidus in 10% (treat with amiloride) Drug-drug interactions: increase in lithium: NSAIDs, JESSEE inhibitors, angiotensin II antagonists educated on light box therapy and proper use for SAD continue therapyobtain labs PCP 2. Generalized anxiety disorder - Lexapro 20 mg daily Buspar 15 mg - Patient been taking 2 tabs in am and helped Medication Management and Follow-Up- Plan:- Schedule follow-up appointments every 2-3 months to monitor the patient's response to the medication regimen.- Reinforce the importance of avoiding recreational drug use due to potential neurotoxicity and interactions with prescribed medications. 3. Cannabis dependence -Recommend decrease/stop cannabis use as it can negatively impact mood, motivation, anxiety, sleep, focus/concentrati on/memory (vigilance, elasticity, processing and attention); can also contribute to development of psychosis.Cannabi s/marijuana information:http_ s://urmila.nih.gov/ publications/drug facts/cannabis-ma [facility]http_s://w ww.[facility].gov/mar vxlbzpU66.20: Cannabis dependence, uncomplicated 4. Fatigue -improved 5.Vaping- educted on decreasing vaping and cannabis use Smoking Education Do not smoke. Nicotine and other chemicals in cigarettes and cigars can cause lung damage. Ask your healthcare provider for information if you currently smoke and need help to quit. E-cigarettes or smokeless tobacco still contain nicotine. Talk to your healthcare provider before you use these products. education on decrease to stopping nicotine products and stop smoking hotline given 063-Quit - Yes [place] Tobacco Quitline Call a Smoking Quitline The [employer] [place]'s Smoking Quitline, (0-923-35Q-QUIT) Smokefree.gov, which connects you with your State's Quitline, (5-012-NAVCUBL) Veterans Smoking Quitline, (7-896-ZTWTZVP) Long-term drug therapy 06/29/2025 Vitamin D deficiency (ICD-10 - E55.9) 1. Depressed bipolar I disorder - hx discuss [place] programs[place] [facility] patient waiting on IOP to check insurance and schedule Pillager 300 mg twice a day for depression and passive SI - improved SI thoughts Educated on all rx no plans or intent labs ordered - Patient has depression with low motivation and interest and self care, low energy discuss and educated on Wellbutrin- had hx Wellbutrin in past Wellbutrin XL 150 mg daily in am- improved monitor for julio therapy discuss - patient will find new therapist http_s://www.[employer]/tejinderlevar ogz-sqf-fysbkmfp- marijuana-adhd/ http_s://www.caroline .org/About-Mental -Illness/Mental-H ealth-Conditions http_s://psychcen eHi [employer]Tan[employer]depressi on/the-cognitive- mdmproft-to-hmpke ssion#treatments http__s://www.nim .nih.gov/health/ topics/mental-hea lth-medications http__s://www.nam i.org/About-Menta l-Illness/Treatme nts/Mental-Health -Medications - educated on importance to have labs completed educated on all medications, benefits, side effects and risk, and educated on depression, anxiety, and ADHD, mood d/o and educated on compliance of medications, metabolic and movement d/o education appointment's, continue therapy discussion with patient about course of treatmentand patient instructions. education on serotonin syndrome educated on increase water intake and stay hydrated Lexapro 20 mg daily Pillager use reviewed. Risks include risks of toxicity, arrhythmias, cognitive impairment, changes in muscle coordination, weight gain, thyroid and parathyroid changes, polydipsia and polyuria, alopecia, tremor and teratogenicity ( defects). Recommend avoid in females (use contraception consistently). Routine lab monitoring may be required. Patient consented to treatment. Indications: acute julio (euphoric julio), bipolar prophylaxis, bipolar depression treatment or augmentation, unipolar depression as augmentation with antidepressants Average dose = I,500 mg/day, target serum level 0.8 Pillager is known to reduce risk of suicide. Mechanism of action: inhibits inositol monophosphatase, interfering with 2nd messengers Nuisance Side Effects: sedation, cognitive difficulties, decreased creativity, dry mouth, tremor, increased appetite, weight gain, polydipsia, polyuria, nausea, diarrhea, acne, alopecia Serious Side Effects: Thyroid: hypothyroidism (5%), goiter (3%) Cardiac: decrease in cardiac conduction leading to sick sinus syndrome, blocks SA node Teratogenicity: Ebstein's anomaly 2 in 1,000 Renal: chronic renal insufficiency (after 10-20 years), acute renal failure, polyuria occurs in 50-70% [lithium antagonizes anti-diuretic hormone (ADH)], diabetes insipidus in 10% (treat with amiloride) Drug-drug interactions: increase in lithium: NSAIDs, JESSEE inhibitors, angiotensin II antagonists educated on light box therapy and proper use for SAD continue therapyobtain labs PCP 2. Generalized anxiety disorder - Lexapro 20 mg daily Buspar 15 mg - Patient been taking 2 tabs in am and helped Medication Management and Follow-Up- Plan:- Schedule follow-up appointments every 2-3 months to monitor the patient's response to the medication regimen.- Reinforce the importance of avoiding recreational drug use due to potential neurotoxicity and interactions with prescribed medications. 3. Cannabis dependence -Recommend decrease/stop cannabis use as it can negatively impact mood, motivation, anxiety, sleep, focus/concentrati on/memory (vigilance, elasticity, processing and attention); can also contribute to development of psychosis.Cannabi s/marijuana information:http_ s://urmila.nih.gov/ publications/drug facts/cannabis-ma [facility]http_s://w ww.[facility] hospitala.gov/mar dxogzbT54.20: Cannabis dependence, uncomplicated 4. Fatigue -improved 5.Vaping- educted on decreasing vaping and cannabis use Smoking Education Do not smoke. Nicotine and other chemicals in cigarettes and cigars can cause lung damage. Ask your healthcare provider for information if you currently smoke and need help to quit. E-cigarettes or smokeless tobacco still contain nicotine. Talk to your healthcare provider before you use these products. education on decrease to stopping nicotine products and stop smoking hotline given -Quit - Yes [place] Tobacco Quitline Call a Smoking Quitline The [employer] [place]'s Smoking Quitline, (6-397-43S-QUIT) Smokefree.gov, which connects you with your State's Quitline, (6-728-TZVPBYN) Veterans Smoking Quitline, (5-924-KKUTTDH) Long-term drug therapy Plan Of Treatment Medication Medication Name Sig Start Date Stop Date Notes Wellbutrin XL 150 MG Tablet Extended Release 24 Hour 1 tablet in the morning Orally Once a day; Duration: 30 days 06/29/2025 busPIRone HCl 15 MG Tablet 2 tabs in am Oral Once a day; Duration: 30 days 06/29/2025 09/27/2025 Escitalopram Oxalate 20 MG Tablet 1 tablet Oral Once a day; Duration: 30 days 06/29/2025 Pillager Carbonate 300 MG Capsule 1 capsule Oral Twice a day; Duration: 30 days 06/29/2025 Treatment Notes Assessment Notes Bipolar disorder, current ep isode depressed, mild Bipolar Disorder: Care Instructions material was published, Learning About How to Get Help During a Mental Health Crisis material was published, Learning About Mood Disorders material was published Generalized anxiety disorder Learning Ab out Generalized Anxiety Disorder material was published, Generalized Anxiety Disorder: Care Instructions material was published Suicidal ideations Suicidal Thoughts in a Family Member: Care Instructions material was published, Suicidal Thoughts and Behavior: Care Instructions material was published, Learning About Making a Suicide Safety Plan material was published Other fatigue Fatigue: Care Instru ctions material was published Other jail (current) drug therapy M edication Refill: Care Instructions material was published Marijuana use Marijuana Use: Care Instructions material was published, Learning About Cannabis Use Disorder material was published Future Test Test Name Order Date Pillager (Eskalith), Serum 06/29/2025 LIPID PANEL WITH REFLEX TO DIRECT LDL (1 8452) 06/29/2025 COMPREHENSIVE METABOLIC PANEL (01542) CBC (INCLUDES DIFF/PLT) (6399) HEMOGLOBIN A1c (496) 06/29/2025 TSH W/REFLEX TO FT4 (52086) 06/29/2025 Next Appt Details Follow Up: 3 Months, Reason: medication follow up print lab order Provider Name:Jewels Bello , 10/02/2025 08:30:00 AM, [address], [facility] [address], [place], [address], History and Physical Notes * HPI (History of Present Illness) Category Sub-Category Detail Notes Category Not es History of Presenting Problem Depression screening done Depression screening PHQ-9 Little interest or pleasure in doing things: Several days Follow up depression, anxiety chronic since last visit reported since started Wellbutrin I been doing better, I feel I may increase the dose also, and I been more productive and less sad in general and better at work and reviews also trend higher and I feel most part not as frequent sad or down, not hopeless or helpless, not as frequent fleeing thoughts of and no SI, no plan or intent, denies HI. not resltess or fidgety , not anxious and Sleep is really good, 6-9 hours per night. bed and up arounf same time, Appetite is fine, not over eating but not binging. Motivation is better and I manage to not get fine for not mowing grass and doing more around house also. Concentration and focus pretty good Interest is improving, Denies hallucinations/paran oia.no julio . Denies side effects. Medication is good. Depression 3-02/04, anxiety 3-01/05, improved agitation and irritable, Tobacco-vapes ETOH-rarely, 5-6 times/year Marijuana- daily Substance use-cocaine on occasion denies SI/HI no plans or intent Feeling down, depressed, or hopeless: Se veral days Trouble falling or staying asleep, or sl eeping too much: Not at all Feeling tired or having little energy: S everal days Poor appetite or overeating: Several day s Feeling bad about yourself o r that you are a failure, or have let yourself or your family down: Not at all Trouble concentrating on thi ngs, such as reading the newspaper or watching television: Not at all Moving or speaking so slowly that other people could have noticed; or the opposite, being so fidgety or restless that you have been moving around a lot more than usual: Not at all Thoughts that you would be b alice off or of hurting yourself in some way: Not at all Total Score: 4 Interpretation: Minimal Depression Intervention Depression Screening Findings: P ositve Follow-Up for Depression: [facility] health care management, Psychiatric follow-up Suicide Risk Assessment Performed: 06/29 denies SI/HI no plans or intent Depression Screening QIAN-7 (2018 Edition) Feelin g nervous, anxious, or on edge: Not at all Not being able to stop or control worryi ng: Not at all Worrying too much about different things : Not at all Trouble relaxing: Several days Being so restless that it is hard to sit still: Not at all Becoming easily annoyed or irritable: No t at all Feeling afraid as if something awful maria dolores ht happen: Not at all Total QIAN-7 Score: 1 Interpretation of Total: (0 to 4) No Anx iety [place]-Suicide Severity Rating Scale Suicide Risk (CSRS-screener) in the past one month Have you wished you were or wished you could go to sleep and not wake up?: No in the past one month Have y ou actually had any thoughts of killing yourself?: No Have you ever done anything, started to do anything, or prepared to do anything to end your life?: No Examination Category Sub-Category Detail Notes Category Not es Psychiatry Appearance: well-groomed, we ll-nourished, appears stated age Attitude: cooperative Psychomotor activity: within normal rang e Abnormal body movements: none Attention: good Degree of awareness of surroundings: wit hin normal limits Orientation: awake, alert and lnidsay ented x 3 Affect / mood: appropriate, full ra nge Speech / language: appropriate pitch/mo dulation, clear and coherent, normal rate, volume, and articulation (RVR), proper grammar used Insight: fair Judgement: fair Thought process: intact Thought content: appropriate Perceptual disorders: no perceptual diso rder noted Aggression: low Anger control: good Suicidal ideation: chronic passive thou ghts no plan or intent no past attempts Homicidal ideation: none Intellectual functioning: average Impulse control: fair Sexual impulse control: good Memory status: no impairment noted Delusions: no Hallucinations: no Comprehension - Intellectual function: a verage Gait steady Progress Notes * JACKIE NGUYEN LDOB:1990 (35 yo M)Acc No.[id number]:06/29/2025 Patient: JACKIE MONROY Provider: KHOA WESTON :1990 A ge:35 Y S ex:Male Date:06/29/2025 Address:[address] [place], [place] [id number] Pcp:Radha Cardozo DO Subjective: * Chief Complaints: * 1 . Follow Up. 2. Follow up psychological reason. * HPI: D epression Screening: QIAN-7 (2018 Edition) F eeling nervous, anxious, or on edge N ot at all N ot being able to stop or control worrying?Not at all W orrying too much about different things N ot at all T rouble relaxing S everal days B eing so restless that it is hard to sit still N ot at all B ecoming easily annoyed or irritable N ot at all F eeling afraid as if something awful might happen N ot at all T otal QIAN-7 Score 1 I nterpretation of Total ( 0 to 4) No Anxiety [place]-Suicide Severity Rating Scale: Suicide Risk (CSRS-screener) i n the past one month Have you wished you were or wished you could go to sleep and not wake up? N o i n the past one month Have you actually had any thoughts of killing yourself? N o H ave you ever done anything, started to do anything, or prepared to do anything to end your life? N o D epression screening: PHQ-9 L ittle interest or pleasure in doing things?Several days F eeling down, depressed, or hopeless S everal days T rouble falling or staying asleep, or sleeping too much N ot at all F eeling tired or having little energy S everal days P oor appetite or overeating S everal days F eeling bad about yourself or that you are a failure, or have let yourself or your family down N ot at all T rouble concentrating on things, such as reading the newspaper or watching television N ot at all M oving or speaking so slowly that other people could have noticed; or the opposite, being so fidgety or restless that you have been moving around a lot more than usual N ot at all T houghts that you would be better off or of hurting yourself in some way N ot at all T otal Score 4 I nterpretation M inimal Depression Intervention D epression Screening Findings P ositve F ollow-Up for Depression M ental health care management, Psychiatric follow-up S uicide Risk Assessment Performed 1 denies SI/HI no plans or intent Follow up depression, anxiety chronic since last visit reported since started Wellbutrin I been doing better, I feel I may increase the dose also, and I been more productive and less sad in general and better at work and reviews also trend higher and I feel most part not as frequent sad or down, not hopeless or helpless, not as frequent fleeing thoughts of and no S I, no plan or intent, denies HI. not resltess or fidgety , not anxious and Sleep is really good, 6-9 hours per night. bed and up arounf same time, Appetite is fine, not over eating but not binging. Motivation is better and I manage to not get fine for not mowing grass and doing more around house also. Concentration and focus pretty good Interest is improving, Denies hallucinations/paranoia.no julio . Denies side effects. Medication is good. Depression 3-10, anxiety 3-10, improved agitation and irritable, Tobacco-vapes ETOH-rarely, 5-6 times/year Marijuana- daily Substance use-cocaine on occasion denies SI/HI no plans or intent. H istory of Presenting Problem: patient is smoker. Depression screening done. * ROS: P atient reports b ack pain (5 herniated disk) b ut reports no muscle aches, no muscle weakness, no arthralgias/joint pain, no neck pain, and no difficulty walking. He reports mild anxiety and mild depression, no sleep disturbances, no alcohol abuse, no hallucinations, no suicidal thoughts, improved chronic passive thoughts , no plans or intent, no & #160;irritbale, no mood swings, no memory loss, no agitation, He reports weight gain, and no significant weight loss. He reports wears glasses He reports no chest pain, no shortness of breath , no palpitations, no known heart murmur, and no ankle swelling. He reports no cough He reports no abdominal pain, no nausea, no vomiting, no constipation, normal appetite, no diarrhea, and no GERD. He reports no incontinence, no difficulty urinating, no hematuria, and no increased frequency. He reports no loss of consciousness, no weakness, no numbness, no seizures, no dizziness, no migraines, no headaches, no tremor, and no gait dysfunction. He reports no fatigue. P erformance Met: N ormal blood pressure reading documented, follow-up not required ( G8783). * Medical History: * Social History: T obacco Use: T obacco Control (Standard) T obacco use: U ses tobacco in other forms M igrated Social History: M igrated Social History: Alcohol Intake: Occasional 01/26/2023,Tobacco Years: Former smoker 01/26/2023. D rug/Alcohol: D rugs H ave you used drugs other than those for medical reasons in the past 12 months? Y es Caffeine I ntake: 3 -4 cups per day Do you smoke marijuana?: Admits. Do you drink alcohol?: Yes, NOT VERY OFTEN. H ousehold: H ousehold M arital status: s teresa N umber of adults in household: 1 A ny household pets? Y es 3 cats M iscellaneous: A dvance Care Planning A re you your own decision-maker Y es D o you have Power of Soldering Inspector for Health or Medical? N o S ocial History Verified. * Medications: T aking Pillager Carbonate 300 MG Capsule 1 capsule Oral Twice a day , Taking busPIRone HCl 15 MG Tablet 2 tabs in am Oral Once a day , Taking Escitalopram Oxalate 20 MG Tablet 1 tablet Oral Once a day , Taking EMTRICITABINE 200 MG-TENOFOVIR DISOPROXIL FUMARATE 300 MG TABLET , Notes to Pharmacist: *Reorder from [employer] for eRx and Interaction Alerts*, Taking buPROPion HCl ER (XL) 150 MG Tablet Extended Release 24 Hour TAKE 1 TABLET BY MOUTH DAILY IN THE MORNING , Notes to Pharmacist: appointment needed, Not-Taking Lexapro 20 MG Tablet Oral , Not-Taking Melatonin , Notes to Pharmacist: *Pick strength-form from [employer] for eRX*, Not-Taking Ibuprofen 800 MG Tablet Oral , Not-Taking Acetaminophen-Codeine #3 300-30 MG Tablet Oral , Medication List reviewed and reconciled with the patient * Allergies: N .K.D.A. Allergies Verified. Objective: * Vitals: B P:115/71mm Hg, HR:72/min, RR:17/min, Wt:248lbs, Wt-k.49 kg, Ht: 72.00 in, Ht-cm: 182.88 cm, BMI:33.63Index, Body Surface Area: 2.39. * Examination: P sychiatry: Appearance: w ell-groomed, well-nourished, appears stated age. Abnormal body movements: n one. Affect / mood: a ppropriate, full range. Aggression: l ow. Anger control: g ood. Attention: g ood. Attitude: c ooperative. Gait s teady. Homicidal ideation: n one. Suicidal ideation: c hronic passive thoughts no plan or intent no past attempts. Memory status: n o impairment noted. Degree of awareness of surroundings: w ithin normal limits.? Delusions: n o. Hallucinations: n o. Impulse control: f air. Insight: f air. Intellectual functioning: a verage. Comprehension - Intellectual function: a verage. Judgement: f air. Orientation: a wake, alert and oriented x 3. Perceptual disorders: n o perceptual disorder noted. Psychomotor activity: w ithin normal range. Sexual impulse control: g ood. Speech / language: a ppropriate pitch/modulation, clear and coherent, normal rate, volume, and articulation (RVR), proper grammar used. Thought content: a ppropriate. Thought process: i ntact. Assessment: * Assessment: 1. B ipolar disorder, current episode depressed, mild - F31.31 (Primary) 2 .?Generalized anxiety disorder - F41.1 3 . S uicidal ideations - R45.851 ? 4 . O ther fatigue - R53.83 5 . 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 M arijuana use - F12.90 7 . E ngages in vaping - Z72.89 8 . V itamin D deficiency - E55.9 1. Depressed bipolar I disor celeste - hx discuss IOP programs- [facility] [place], [place] or [facility] patient waiting on IOP to check insurance and schedule Pillager 300 mg twice a day for depression and passive SI- improved SI thoughts Educated on all rx no plans or intent labs ordered - Patient has depression with low motivation and interest and self care, low energy discuss and educated on Wellbutrin- had hx Wellbutrin in past W ellbutrin XL 150 mg daily in am- improved monitor for julio therapy discuss - patient will find new therapist http_s://www.TrustGo.Sellplex/yudjehci-umb-gmkufsbi-marijuana-adhd/ http_s://www.caroline.org/Glcyy-Ldwwzj-Foghsam/Disogu-Ydlkka-Wuuuayowwf http_s://psychcentral.com/depression/tbl-xrovdtczm-ohmmbjiv-of-depression#treatm ents http__s://www.[facility].nih.gov/health/topics/ywxcwi-gehfek-vikpezbkmyd http__s://www.caroline.org/Emvjm-Bracbp-Hddnchk/Treatments/Corjij-Ipdzif-Teadafjuiuq - educated on importance to have labs completed educated on all medications, benefits, side effects and risk, and educated on depression, anxiety, and ADHD, mood d/o and educated on compliance of medications, metabolic and movement d/o education appointment's, continue therapy discussion with patient about course of treatmentand patient instructions. education on serotonin syndrome educated on increase water intake and stay hydrated Lexapro 20 mg daily Pillager use reviewed. Risks include risks of toxicity, arrhythmias, cognitive impairment, changes in muscle coordination, weight gain, thyroid and parathyroid changes, polydipsia and polyuria, alopecia, tremor and teratogenicity ( defects). Recommend avoid in females (use contraception consistently). Routine lab monitoring may be required. Patient consented to treatment. Indications: acute julio (euphoric julio), bipolar prophylaxis, bipolar depression treatment or augmentation, unipolar depression as augmentation with antidepressants Average dose = I,500 mg/day, target serum level 0.8 Pillager is known to reduce risk of suicide. Mechanism of action: inhibits inositol monophosphatase, interfering with 2nd messengers Nuisance Side Effects: sedation, cognitive difficulties, decreased creativity, dry mouth, tremor, increased appetite, weight gain, polydipsia, polyuria, nausea, diarrhea, acne, alopecia Serious Side Effects: Thyroid: hypothyroidism (5%), goiter (3%) Cardiac: decrease in cardiac conduction leading to sick sinus syndrome, blocks SA node Teratogenicity: Ebstein's anomaly 2 in 1,000 Renal: chronic renal insufficiency (after 10-20 years), acute renal failure, polyuria occurs in 50-70% [lithium antagonizes anti-diuretic hormone (ADH)], diabetes insipidus in 10% (treat with amiloride) Drug-drug interactions: increase in lithium: NSAIDs, JESSEE inhibitors, angiotensin II antagonists educated on light box therapy and proper use for SAD continue therapyobtain labs PCP 2. Generalized anxiety disorder - Lexapro 20 mg daily Buspar 15 mg - Patient been taking 2 tabs in am and helped Medication Management and Follow-Up- Plan:- Schedule follow-up appointments every 2-3 months to monitor the patient's response to the medication regimen.- Reinforce the importance of avoiding recreational drug use due to potential neurotoxicity and interactions with prescribed medications. 3. Cannabis dependence -Recommend decrease/stop cannabis use as it can negatively impact mood, motivation, anxiety, sleep, focus/concentration/memory (vigilance, elasticity, processing and attention); can also contribute to development of psychosis.Cannabis/marijuana information:http_s://urmila.nih.gov/publications/drugfacts/cannabis- marijuanahttp_s://w ww.[facility].gov/wcxrhilyxF23.20: Cannabis dependence, uncomplicated 4. Fatigue -improved 5.Vaping- educted on decreasing vaping and cannabis use Smoking Education Do not smoke. Nicotine and other chemicals in cigarettes and cigars can cause lung damage. Ask your healthcare provider for information if you currently smoke and need help to quit. E-cigarettes or smokeless tobacco still contain nicotine. Talk to your healthcare provider before you use these products. education on decrease to stopping nicotine products and stop smoking hotline given 7030-Quit - Yes [place] Tobacco Quitline Call a Smoking Quitline The [employer] [place]'s Smoking Quitline, (0-145-50G-QUIT) Smokefree.gov, which connects you with your [facility]'s Quitline, (1-280-OWCLIOQ) [facility] Smoking Quitline, (4-526-JSFHYXE) Long-term drug therapy Plan: * Treatment: 2. G eneralized anxiety disorder Refill busPIRone HCl Tablet, 15 MG, 2 tabs in am, Oral, Once a day, 30 days, 60 Tablet, Refills 2;?Refill Escitalopram Oxalate Tablet, 20 MG, 1 tablet, Oral, Once a day, 30 days, 30, Refills 2.? L AB: Pillager (Eskalith), Serum (Ordered for 06/29/2025) L AB: COMPREHENSIVE METABOLIC PANEL (29308) (Ordered for 06/29/2025) L AB: CBC (INCLUDES DIFF/PLT) (6399) (Ordered for 06/29/2025) L AB: HEMOGLOBIN A1c (496) (Ordered for 06/29/2025) L AB: TSH W/REFLEX TO FT4 (82577) (Ordered for 06/29/2025) L AB: LIPID PANEL WITH REFLEX TO DIRECT LDL (29462) (Ordered for 06/29/2025) Notes: Learning About Generalized Anxiety Disorder material was published, Generalized Anxiety Disorder: Care Instructions material was published 3. S uicidal ideations L AB: Pillager (Eskalith), Serum (Ordered for 06/29/2025) L AB: COMPREHENSIVE METABOLIC PANEL (23500) (Ordered for 06/29/2025) L AB: CBC (INCLUDES DIFF/PLT) (6399) (Ordered for 06/29/2025) L AB: HEMOGLOBIN A1c (496) (Ordered for 06/29/2025) L AB: TSH W/REFLEX TO FT4 (36528) (Ordered for 06/29/2025) L AB: LIPID PANEL WITH REFLEX TO DIRECT LDL (92866) (Ordered for 06/29/2025) Notes: Suicidal Thoughts in a Family Member: Care Instructions material was published, Suicidal Thoughts and Behavior: Care Instructions material was published, Learning About Making a Suicide Safety Plan material was published 4. O ther fatigue L AB: Pillager (Eskalith), Serum (Ordered for 06/29/2025) L AB: COMPREHENSIVE METABOLIC PANEL (46870) (Ordered for 06/29/2025) L AB: CBC (INCLUDES DIFF/PLT) (6399) (Ordered for 06/29/2025) L AB: HEMOGLOBIN A1c (496) (Ordered for 06/29/2025) L AB: TSH W/REFLEX TO FT4 (97691) (Ordered for 06/29/2025) L AB: LIPID PANEL WITH REFLEX TO DIRECT LDL (74393) (Ordered for 06/29/2025) Notes: Fatigue: Care Instructions material was published 5. O ther jail (current) drug therapy L AB: Pillager (Eskalith), Serum (Ordered for 06/29/2025) L AB: COMPREHENSIVE METABOLIC PANEL (23709) (Ordered for 06/29/2025) L AB: CBC (INCLUDES DIFF/PLT) (6399) (Ordered for 06/29/2025) L AB: HEMOGLOBIN A1c (496) (Ordered for 06/29/2025) L AB: TSH W/REFLEX TO FT4 (39422) (Ordered for 06/29/2025) L AB: LIPID PANEL WITH REFLEX TO DIRECT LDL (56703) (Ordered for 06/29/2025) Notes: Medication Refill: Care Instructions material was published 6. M arijuana use L AB: Pillager (Eskalith), Serum (Ordered for 06/29/2025) L AB: COMPREHENSIVE METABOLIC PANEL (79474) (Ordered for 06/29/2025) L AB: CBC (INCLUDES DIFF/PLT) (6399) (Ordered for 06/29/2025) L AB: HEMOGLOBIN A1c (496) (Ordered for 06/29/2025) L AB: TSH W/REFLEX TO FT4 (66794) (Ordered for 06/29/2025) L AB: LIPID PANEL WITH REFLEX TO DIRECT LDL (51005) (Ordered for 06/29/2025) Notes: Marijuana Use: Care Instructions material was published, Learning About Cannabis Use Disorder material was published 7. E ngages in vaping L AB: Pillager (Eskalith), Serum (Ordered for 06/29/2025) L AB: COMPREHENSIVE METABOLIC PANEL (71918) (Ordered for 06/29/2025) L AB: CBC (INCLUDES DIFF/PLT) (6399) (Ordered for 06/29/2025) L AB: HEMOGLOBIN A1c (496) (Ordered for 06/29/2025) L AB: TSH W/REFLEX TO FT4 (07805) (Ordered for 06/29/2025) L AB: LIPID PANEL WITH REFLEX TO DIRECT LDL (95467) (Ordered for 06/29/2025) 8. V itamin D deficiency L AB: Pillager (Eskalith), Serum (Ordered for 06/29/2025) L AB: COMPREHENSIVE METABOLIC PANEL (47339) (Ordered for 06/29/2025) L AB: CBC (INCLUDES DIFF/PLT) (6399) (Ordered for 06/29/2025) L AB: HEMOGLOBIN A1c (496) (Ordered for 06/29/2025) L AB: TSH W/REFLEX TO FT4 (38854) (Ordered for 06/29/2025) L AB: LIPID PANEL WITH REFLEX TO DIRECT LDL (82423) (Ordered for 06/29/2025) * Procedure Codes: G 9902 Pt scrn tbco and id as user, 55568 BEHAV ASSMT W/SCORE & DOCD/STAND INSTRUMENT, G2211 VISIT COMPLEXITY INHERENT TO ONGOING CARE RELATED TO A PATIENT'S SINGLE, SERIOUS CONDITION OR A COMPLEX CONDITION * Preventive Medicine: Counseling: C ommunication to patient: Counseled the Patient on tobacco use; cessation provided 1 Smoking EducationDo not smoke. Nicotine and other chemicals in cigarettes and cigars can cause lung damage. Ask your healthcare provider for information if you currently smoke and need help to quit. E-cigarettes or smokeless tobacco still contain nicotine. Talk to your healthcare provider before you use these products.education on decrease to stopping nicotine products and stop smoking hotline bdhuf0-544-Ykdu - Yes [place] Tobacco QuitlineCall a Smoking QuitlineThe [employer] [place]'s Smoking Quitline, (4-599-57Q-QUIT)Smokefree.gov, which connects you with your State's Quitline, (3-736-HLYQYUS)[facility] Smoking Quitline, (0-467-XIGHVJF) Counseled the Patient on smoking cessation; education provided 1 Date Counseled the Patient on smoking effects; education provided Date Screenings: D epression screening Have you had a recent depression screening? Y es S moking Cessation counseling done Discuss the importance of quitting smoking. * Follow Up: 3 Months (Reason: medication follow up print lab order) Billing Information: * Visit Code: 00425 OFFICE OUTPATIENT VISIT 25 MINUTES DETAILED HISTORY AND EXAM/MODERATE MEDICAL DECISION MAKING. * Procedure Codes: G9902 Pt scrn tbco and id as user. 34332 BEHAV ASSMT W/SCORE & DOCD/STAND INSTRUMENT. G2211 VISIT COMPLEXITY INHERENT TO ONGOING CARE RELATED TO A PATIENT'S SINGLE, SERIOUS CONDITION OR A COMPLEX CONDITION. * Sign off status: Completed true * Provider: KHOA WESTON Date: Generated for Christopher henao/Frankie/Georgina on: 10:27 AM CDT
[2025-06-29 10:26] LABS: Hematocrit 45.7 % (42.0-52.0); Hemoglobin 15.6 g/dL (14.0-18.0); Immature Granulocyte Percent A 0.3 % (0-0.5); Lymphocytes Absolute Auto 1.49 K/mm3 (0.9-3.2); Mean Corpuscular HGB Conc 34.1 g/dl (32-36); Mean Corpuscular Hemoglobin 31.2 pg (26-34); Mean Corpuscular Volume 91.4 fl (80-100); Nucleated Red Blood Cells Absolute Auto 0.000 K/mm3 (0.0-0.012); Nucleated Red Blood Cells Perc 0.0 % (0.0-0.2); Platelet Count Result 276 k/mm3 (150-375); Red Blood Count 5.00 M/mm3 (4.6-6.20); White Blood Count 7.1 K/mm3 (4.5-10.0)
--- OUTSIDE RECORDS SUMMARY | 2025-06-29 10:27 | XMS_ITS | Patient Health Record ---
Author Organization [facility] [place] Address [address] [place] [address] Care Team Providers Care Tile Ditcher Name Role Phone Radha Cardozo DO Primary Care Provider Unavail able Jewels Bello Unavailable [phone] Allergies No Known Allergies Reason For Referral No Information Medications Medication SIG (Take, Route, Frequency, Duration) Notes Start Date End Date Status Ibuprofen 800 MG Tablet Oral 11/20/2023 Not-Taking Melatonin *Pick strength-form from PATHEOS for eRX* 11/20/2023 Not-Taking Acetaminophen-Codein e #3 300-30 MG Tablet Oral 11/20/2023 Not-Taking EMTRICITABINE 200 MG-TENOFOVIR DISOPROXIL FUMARATE 300 MG TABLET *Reorder from PATHEOS for eRx and Interaction Alerts* 11/20/2023 Active Lexapro 20 MG Tablet Oral 11/20/2023 Not-Taking buPROPion HCl ER (XL) 150 MG Tablet Extended Release 24 Hour TAKE 1 TABLET BY MOUTH DAILY IN THE MORNING; Duration: 30 appointment needed Active Wellbutrin XL 150 MG Tablet Extended Release 24 Hour 1 tablet in the morning Orally Once a day; Duration: 30 days 06/29/2025 Active busPIRone HCl 15 MG Tablet 2 tabs in am Oral Once a day; Duration: 30 days 06/29/2025 09/27/2025 Active Escitalopram Oxalate 20 MG Tablet 1 tablet Oral Once a day; Duration: 30 days 06/29/2025 Active Lely Resort Carbonate 300 MG Capsule 1 capsule Oral [...] decision-maker Yes Do you have Power of Computer [employer] [facility] or [facility]? No Household: Social Info Question Answer Notes [...] drink alcohol? 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.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) 4 Active confirmed Problem Nondependent cannabis abuse (283371697) Marijuana use (F12.90) Active confirmed Problem Vitamin D deficiency (67093686) Vitamin D deficiency (E55.9) Active confirmed Problem Vaping (event) (142368099) Engages in vaping (Z72.89) Active confirmed Vital Signs Heart Rate 72 /min 06/29/2025 Respiratory Rate 17 /min 06/29/2025 Height-cm 182.88 cm 06/29/2025 Blood pressure diastolic 71 mm Hg 06/29/2025 Weight-kg 112.49 kg 06/29/2025 Height 72.00 in 06/29/2025 Blood pressure systolic 115 mm Hg 06/29/2025 Weight 248 lbs 06/29/2025 BMI 33.63 kg/m2 06/29/2025 Encounters [facility] [place] [address] [facility] [address] [place] [address] 09/02/2024 Jewels Bello Bipolar disorder, current episode depressed, mild F31.31 ; Generalized anxiety disorder F41.1 ; Suicidal ideations R45.851 ; Other fatigue R53.83 ; 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 Z79.899 ; Marijuana use F12.90 ; Engages in vaping Z72.89 and Vitamin D deficiency E55.9 [facility] [address] [facility] [address] [place] [address] 12/01/2024 Jewels Bello Bipolar disorder, current episode depressed, mild F31.31 ; Generalized anxiety disorder F41.1 ; Suicidal ideations R45.851 ; Other fatigue R53.83 ; 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 Z79.899 ; Marijuana use F12.90 ; Engages in vaping Z72.89 and Vitamin D deficiency E55.9 [facility] [address] [facility] [address] [place] [address] 12/30/2024 Jewels Bello Bipolar disorder, current episode depressed, mild F31.31 ; Generalized anxiety disorder F41.1 ; Suicidal ideations R45.851 ; Other fatigue R53.83 ; 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83 ; Other detention (current) drug therapy Z79.899 ; Marijuana use F12.90 ; Engages in vaping Z72.89 and Vitamin D deficiency E55.9 [facility] [facility] [address] [place] [address] 07/28/2024 Jewels Raulmark Bipolar disorder, current episode depressed, mild F31.31 [facility] [employer] [facility] [address] [place] [address] 07/29/2024 Jewels Bello Assessments Encounter Date Diagnosis (ICD Code) Assessment Notes Treatment Notes Treatment Clinical Notes Section Notes 07/28/2024 Bipolar disorder, current episode depressed, mild (ICD-10 - F31.31) 09/02/2024 Bipolar disorder, current episode depressed, mild (ICD-10 - F31.31) Bipolar Disorder: Care Instructions material was published, Learning About How to Get Help During a Mental Health Crisis material was published, Learning About Mood Disorders material was published 1. Depressed bipolar I disorder - discuss IOP programs- [place] or [facility] PATIENT ASKED ABOUT FLMA for IOP will have IOP completed forms Lely Resort 300 mg twice a day for depression and passive SI - improved Educated on all rx no plans or intent labs ordered monitor for julio therapy TAYE http_s://www.add itudeNetlogon.Paybubble/can inaek-psj-tldkhf ks-ldqrhgkhd-bvz d/ http_s://www.nam i.org/About-Ment al-Illness/Menta g-Kmiwjt-Lcjgflg ons http_s://psychce Spectrawatt/depres maggie/the-cogniti an-lmkdtxrp-th-d epression#treatm ents http__s://www.ni mh.nih.gov/healt h/topics/mental- health-medicatio ns http__s://www.na mi.org/About-Men glenroy-Illness/Eryn tments/Mental-He alth-Medications LABS lithium completed 02/18 will order labs today - educated on importance to have labs [...] and stay hydrated Lexapro 20 mg daily patient wants to stay on all current rx at this time Lely Resort use reviewed. Risks include risks of toxicity, [...] = I,500 mg/day, target serum level 0.8 Lely Resort is known to reduce risk of suicide. [...] can negatively impact mood, motivation, anxiety, sleep, focus/concentrat ion/memory (vigilance, elasticity, processing and attention); can also contribute to development of psychosis.Cannab is/marijuana information:http _s://urmila.nih.go v/publications/d rugfacts/cannabi s-marijuanahttp_ s://www.[facility] hospital[facility].g ov/yfehdtdscS40. 20: Cannabis dependence, uncomplicated 4. Fatigue -improved Vaping- educted on decreasing vaping and cannabis use Long-term drug therapy 09/02/2024 Generalized anxiety disorder (ICD-10 - F41.1) Learning About Generalized Anxiety Disorder material was published, Generalized Anxiety Disorder: Care Instructions material was published 1. Depressed bipolar I disorder - discuss IOP programs- [place] or [facility] PATIENT ASKED ABOUT FLMA for IOP will have IOP completed forms Lely Resort 300 mg twice a day for depression and passive SI - improved Educated on all rx no plans or intent labs ordered monitor for julio therapy TAYE http_s://www.Meludia/can rxfjf-xhl-kzrxwt nb-mzpswgxzn-ytv d/ http_s://www.nam i.org/About-Ment al-Illness/Menta v-Flzgjj-Mmpvdtc ons http_s://psychValley [employer] Group/depres maggie/the-cogniti jq-glgrqgwk-dz-d epression#treatm ents http__s://www.ni mh.nih.gov/healt h/topics/mental- health-medicatio ns http__s://www.na mi.org/About-Men glenroy-Illness/Eryn tments/Mental-He alth-Medications LABS lithium completed 02/18 will order labs today - educated on importance to have labs [...] and stay hydrated Lexapro 20 mg daily patient wants to stay on all current rx at this time Lely Resort use reviewed. Risks include risks of toxicity, [...] = I,500 mg/day, target serum level 0.8 Lely Resort is known to reduce risk of suicide. [...] can negatively impact mood, motivation, anxiety, sleep, focus/concentrat ion/memory (vigilance, elasticity, processing and attention); can also contribute to development of psychosis.Cannab is/marijuana information:http _s://urmila.nih.go v/publications/d rugfacts/cannabi s-marijuanahttp_ s://www.samhsa.g ov/mnxqgomepQ84. 20: Cannabis dependence, uncomplicated 4. Fatigue -improved Vaping- educted on decreasing vaping and cannabis use Long-term drug therapy 12/01/2024 Bipolar disorder, current episode depressed, mild (ICD-10 - F31.31) Bipolar Disorder: Care Instructions material was published, Learning About How to Get Help During a Mental Health Crisis material was published, Learning About Mood Disorders material was published 1. Depressed bipolar I disorder - discuss IOP programs- [place] or [facility] patient waiting on IOP to check insurance and schedule Lely Resort 300 mg twice a day for depression and passive SI - improved SI thoughts Educated on all rx no plans or intent labs ordered last visit- patient reported labs done at PCP office- wll obtain - Patient has depression with low motivation and interest and self care, low energy discuss and educated on Wellbutrin- had hx Wellbutrin in past Add Wellbutrin XL 150 mg daily in am monitor for julio therapy discuss - patient will find new therapist http_s://www.Meludia/can atlot-cfk-vwpfaf kg-rpsvljubi-ivf d/ http_s://www.nam i.org/About-Ment al-Illness/Menta o-Gdzszw-Hrboufc ons http_s://psychValley [employer] Group/depres maggie/the-cogniti zk-ogkktvil-hf-d epression#treatm ents http__s://www.ni .nih.gov/healt h/topics/mental- health-medicatio ns http__s://www.na mi.org/About-Men glenroy-Illness/Eryn tments/Mental-He alth-Medications - educated on importance to have labs [...] and stay hydrated Lexapro 20 mg daily Lely Resort use reviewed. Risks include risks of toxicity, [...] = I,500 mg/day, target serum level 0.8 Lely Resort is known to reduce risk of suicide. [...] can negatively impact mood, motivation, anxiety, sleep, focus/concentrat ion/memory (vigilance, elasticity, processing and attention); can also contribute to development of psychosis.Cannab is/marijuana information:http _s://urmila.nih.go v/publications/d rugfacts/cannabi s-marijuanahttp_ s://www.[facility] hospitala.g ov/gtidnwvgtK91. 20: Cannabis dependence, uncomplicated 4. Fatigue -improved 5.Vaping- [...] stop smoking hotline given -Quit - Yes [place] Tobacco Quitline Call a Smoking Quitline [employer] [place]'s Smoking Quitline, (8-410-28D-QUIT) Smokefree.gov, which connects you with your State's Quitline, (4-576-FYUGWEI) Veterans Smoking Quitline, (5-868-SEWZZTF) Long-term drug therapy 12/30/2024 Bipolar disorder, current episode depressed, mild (ICD-10 - F31.31) Bipolar Disorder: Care Instructions material was published, Learning About How to Get Help During a Mental Health Crisis material was published, Learning About Mood Disorders material was published 1. Depressed bipolar I disorder - discuss IOP programs- [place] or [facility] patient waiting on IOP to check insurance and schedule Lely Resort 300 mg twice a day for depression and passive SI - improved SI thoughts Educated on all rx no plans or intent labs ordered last visit- patient reported labs done at PCP office- will obtain - Patient has depression with low motivation and interest and self care, low energy discuss and educated on Wellbutrin- had hx Wellbutrin in past Wellbutrin XL 150 mg daily in am- improved monitor for julio therapy discuss - patient will find new therapist http_s://www.Meludia/can juvrf-fkl-kvbvfg pk-qphomcrlr-cxn d/ http_s://www.nam i.org/About-Ment al-Illness/Menta p-Sfjgvh-Afaosqz ons http_s://psychce [employer]/depres maggie/the-cogniti wp-qxddtjls-ki-d epression#treatm ents http__s://www.ni mh.nih.gov/healt h/topics/mental- health-medicatio ns http__s://www.na mi.org/About-Men glenroy-Illness/Eryn tments/Mental-He alth-Medications - educated on importance to have labs [...] and stay hydrated Lexapro 20 mg daily Lely Resort use reviewed. Risks include risks of toxicity, [...] = I,500 mg/day, target serum level 0.8 Lely Resort is known to reduce risk of suicide. [...] can negatively impact mood, motivation, anxiety, sleep, focus/concentrat ion/memory (vigilance, elasticity, processing and attention); can also contribute to development of psychosis.Cannab is/marijuana information:http _s://urmila.nih.go v/publications/d rugfacts/cannabi s-marijuanahttp_ s://www.samhsa.g ov/skywzscerX02. 20: Cannabis dependence, uncomplicated 4. Fatigue -improved 5.Vaping- [...] stop smoking hotline given -Quit - Yes [place] Tobacco Quitline Call a Smoking Quitline [employer] [place]'s Smoking Quitline, (7-756-36Q-QUIT) Smokefree.gov, which connects you with your State's Quitline, (8-540-UCSMUXM) Veterans Smoking Quitline, (1-482-ABTLUIQ) Long-term drug therapy 06/29/2025 Bipolar disorder, current episode depressed, mild (ICD-10 - F31.31) Bipolar Disorder: Care Instructions material was published, Learning About How to Get Help During a Mental Health Crisis material was published, Learning About Mood Disorders material was published 1. Depressed bipolar I disorder - hx discuss IOP programs- [place] or [facility] patient waiting on IOP to check insurance and schedule Lely Resort 300 mg twice a day for depression [...] discuss - patient will find new therapist http_s://www.Meludia/can kgixt-vvu-yzhims jk-hvaqqtogc-dtt d/ http_s://www.nam i.org/About-Ment al-Illness/Menta t-Snyujj-Hkchvlv ons http_s://psychce SourceClear.com/depralycia maggie/the-cogniti nz-hwfrnywq-of-d epression#treatm ents http__s://www.ni mh.nih.gov/healt h/topics/mental- health-medicatio ns http__s://www.na mi.org/About-Men glenroy-Illness/Eryn tments/Mental-He alth-Medications - educated on importance to have labs [...] and stay hydrated Lexapro 20 mg daily Lely Resort use reviewed. Risks include risks of toxicity, [...] = I,500 mg/day, target serum level 0.8 Lely Resort is known to reduce risk of suicide. [...] can negatively impact mood, motivation, anxiety, sleep, focus/concentrat ion/memory (vigilance, elasticity, processing and attention); can also contribute to development of psychosis.Cannab is/marijuana information:http _s://urmila.nih.go v/publications/d rugfacts/cannabi s-marijuanahttp_ s://www.[facility] hospitala.g ov/bwowrftroJ31. 20: Cannabis dependence, uncomplicated 4. Fatigue -improved 5.Vaping- [...] stop smoking hotline given -Quit - Yes [place] Tobacco Quitline Call a Smoking Quitline [employer] [place]'s Smoking Quitline, (5-603-74H-QUIT) Smokefree.gov, which connects you with your State's Quitline, (5-847-PJVNDJF) Veterans Smoking Quitline, (1-801-EFWRXGC) Long-term drug therapy 06/29/2025 Generalized anxiety disorder (ICD-10 - F41.1) Learning About Generalized Anxiety Disorder material was published, Generalized Anxiety Disorder: Care Instructions material was published 1. Depressed bipolar I disorder - hx discuss IOP programs- [place] or [facility] patient waiting on IOP to check insurance and schedule Lely Resort 300 mg twice a day for depression [...] discuss - patient will find new therapist http_s://www.add itudeNetlogon.Paybubble/can wimqy-tqa-wuimcu om-tpvtvsokv-wuy d/ http_s://www.nam i.org/About-Ment al-Illness/Menta t-Knwjdp-Flvjbjo ons http_s://psychce ntral.com/depres maggie/the-cogniti oh-nymlpfro-wa-d epression#treatm ents http__s://www.ni mh.nih.gov/healt h/topics/mental- health-medicatio ns http__s://www.na mi.org/About-Men glenroy-Illness/Eryn hurts/Mental-He alth-Medications - educated on importance to have labs [...] and stay hydrated Lexapro 20 mg daily Lely Resort use reviewed. Risks include risks of toxicity, [...] = I,500 mg/day, target serum level 0.8 Lely Resort is known to reduce risk of suicide. [...] can negatively impact mood, motivation, anxiety, sleep, focus/concentrat ion/memory (vigilance, elasticity, processing and attention); can also contribute to development of psychosis.Cannab is/marijuana information:http _s://urmila.nih.go v/publications/d rugfacts/cannabi s-marijuanahttp_ s://www.[facility]. ov/gtuoslkqeX22. 20: Cannabis dependence, uncomplicated 4. Fatigue -improved 5.Vaping- [...] stop smoking hotline given -Quit - Yes [place] Tobacco Quitline Call a Smoking Quitline [employer] [place]'s Smoking Quitline, (7-903-14D-QUIT) Smokefree.gov, which connects you with your State's Quitline, (1-840-LNCQRSM) Veterans Smoking Quitline, (9-895-FBQTNPP) Long-term drug therapy 06/29/2025 Suicidal ideations (ICD-10 - R45.851) Suicidal Thoughts in a Family Member: Care Instructions material was published, Suicidal Thoughts and Behavior: Care Instructions material was published, Learning About Making a Suicide Safety Plan material was published 1. Depressed bipolar I disorder - hx discuss IOP programs- [place] or [facility] patient waiting on IOP to check insurance and schedule Lely Resort 300 mg twice a day for depression [...] discuss - patient will find new therapist http_s://www.Meludia/can yoeru-mnk-rteaig lh-fpoqwxyru-zin d/ http_s://www.nam i.org/About-Ment al-Illness/Menta c-Sbeuno-Gczeble ons http_s://psychce SourceClear.com/sam serrano/the-cogniti it-qgdwciho-wc-d epression#treatm ents http__s://www.ni .nih.gov/healt h/topics/mental- health-medicatio ns http__s://www.na mi.org/About-Men glenroy-Illness/Eryn tments/Mental-He alth-Medications - educated on importance to have labs [...] and stay hydrated Lexapro 20 mg daily Lely Resort use reviewed. Risks include risks of toxicity, [...] = I,500 mg/day, target serum level 0.8 Lely Resort is known to reduce risk of suicide. [...] can negatively impact mood, motivation, anxiety, sleep, focus/concentrat ion/memory (vigilance, elasticity, processing and attention); can also contribute to development of psychosis.Cannab is/marijuana information:http _s://urmila.nih.go v/publications/d rugfacts/cannabi s-marijuanahttp_ s://www.[facility] hospitala. ov/miiybysnjW47. 20: Cannabis dependence, uncomplicated 4. Fatigue -improved 5.Vaping- [...] nicotine products and stop smoking hotline given 0Quit - Yes [place] Tobacco Quitline Call a Smoking Quitline The [employer] [place]'s Smoking Quitline, (9-183-49B-QUIT) Smokefree.gov, which connects you with your State's Quitline, (9-204-YBMVURA) Veterans Smoking Quitline, (3-520-RBKHXNQ) Long-term drug therapy 12/30/2024 Generalized anxiety disorder (ICD-10 - F41.1) Learning About Generalized Anxiety Disorder material was published, Generalized Anxiety Disorder: Care Instructions material was published 1. Depressed bipolar I disorder - discuss IOP programs- [place] or [facility] patient waiting on IOP to check insurance and schedule Lely Resort 300 mg twice a day for depression and passive SI - improved SI thoughts Educated on all rx no plans or intent labs ordered last visit- patient reported labs done at PCP office- will obtain - Patient has depression with low motivation and interest and self care, low energy discuss and educated on Wellbutrin- had hx Wellbutrin in past Wellbutrin XL 150 mg daily in am- improved monitor for julio therapy discuss - patient will find new therapist http_s://www.Meludia/can nsqzb-grs-dtvrse jz-vxygqpatc-goe d/ http_s://www.nam i.org/About-Ment al-Illness/Menta x-Cyilzd-Dafucre ons http_s://psychce [employer]/depres maggie/the-cogniti if-ltiwxzxa-cl-d epression#treatm ents http__s://www.ni .nih.gov/healt h/topics/mental- health-medicatio ns http__s://www.na mi.org/About-Men glenroy-Illness/Eryn tments/Mental-He alth-Medications - educated on importance to have labs [...] and stay hydrated Lexapro 20 mg daily Lely Resort use reviewed. Risks include risks of toxicity, [...] = I,500 mg/day, target serum level 0.8 Lely Resort is known to reduce risk of suicide. [...] can negatively impact mood, motivation, anxiety, sleep, focus/concentrat ion/memory (vigilance, elasticity, processing and attention); can also contribute to development of psychosis.Cannab is/marijuana information:http _s://urmila.nih.go v/publications/d rugfacts/cannabi s-marijuanahttp_ s://www.[facility] hospitala.g ov/fczteaqkiL80. 20: Cannabis dependence, uncomplicated 4. Fatigue -improved 5.Vaping- [...] stop smoking hotline given -Quit - Yes [place] Tobacco Quitline Call a Smoking Quitline [employer] [place]'s Smoking Quitline, (3-573-09H-QUIT) Smokefree.gov, which connects you with your State's Quitline, (4-919-ZYYJGUT) Veterans Smoking Quitline, (9-874-CKFHEMM) Long-term drug therapy 12/01/2024 Generalized anxiety disorder (ICD-10 - F41.1) Learning About Generalized Anxiety Disorder material was published, Generalized Anxiety Disorder: Care Instructions material was published 1. Depressed bipolar I disorder - discuss IOP programs- [place] or [facility] patient waiting on IOP to check insurance and schedule Lely Resort 300 mg twice a day for depression and passive SI - improved SI thoughts Educated on all rx no plans or intent labs ordered last visit- patient reported labs done at PCP office- wll obtain - Patient has depression with low motivation and interest and self care, low energy discuss and educated on Wellbutrin- had hx Wellbutrin in past Add Wellbutrin XL 150 mg daily in am monitor for julio therapy discuss - patient will find new therapist http_s://www.Meludia/can fzqji-rmb-ezxjkq dg-lvfbofiru-twq d/ http_s://www.nam i.org/About-Ment al-Illness/Menta c-Esckuv-Yosxpyp ons http_s://psychce [employer]/depralycia maggie/the-cogniti iu-iylvuhhu-rm-d epression#treatm ents http__s://www.ni mh.nih.gov/healt h/topics/mental- health-medicatio ns http__s://www.na mi.org/About-Men glenroy-Illness/Eryn tments/Mental-He alth-Medications - educated on importance to have labs [...] and stay hydrated Lexapro 20 mg daily Lely Resort use reviewed. Risks include risks of toxicity, [...] = I,500 mg/day, target serum level 0.8 Lely Resort is known to reduce risk of suicide. [...] can negatively impact mood, motivation, anxiety, sleep, focus/concentrat ion/memory (vigilance, elasticity, processing and attention); can also contribute to development of psychosis.Cannab is/marijuana information:http _s://urmila.nih.go v/publications/d rugfacts/cannabi s-marijuanahttp_ s://www.[facility] hospitala.g ov/xscusxkxbQ13. 20: Cannabis dependence, uncomplicated 4. Fatigue -improved 5.Vaping- [...] stop smoking hotline given -Quit - Yes [place] Tobacco Quitline Call a Smoking Quitline The [employer] [place]'s Smoking Quitline, (3-711-82Z-QUIT) Smokefree.gov, which connects you with your State's Quitline, (6-211-HQSFFUK) Veterans Smoking Quitline, (4-540-GATMKWR) Long-term drug therapy 09/02/2024 Suicidal ideations (ICD-10 - R45.851) Suicidal Thoughts in a Family Member: Care Instructions material was published, Suicidal Thoughts and Behavior: Care Instructions material was published, Learning About Making a Suicide Safety Plan material was published 1. Depressed bipolar I disorder - discuss IOP programs- [place], [place] or [facility] PATIENT ASKED ABOUT FLMA for IOP will have IOP completed forms Lely Resort 300 mg twice a day for depression and passive SI - improved Educated on all rx no plans or intent labs ordered monitor for julio therapy TAYE http_s://www.Meludia/can urrwl-pkq-aglhwf fg-jdkpeypgl-cje d/ http_s://www.nam i.org/About-Ment al-Illness/Menta l-Lmzvec-Lvormsx ons http_s://psychce SourceClear.com/depres maggie/the-cogniti sn-hsvwynpu-ul-d epression#treatm ents http__s://www.ni .nih.gov/healt h/topics/mental- health-medicatio ns http__s://www.na mi.org/About-Men glenroy-Illness/Eryn tments/Mental-He alth-Medications LABS lithium completed 02/18 will order labs today - educated on importance to have labs [...] and stay hydrated Lexapro 20 mg daily patient wants to stay on all current rx at this time Lely Resort use reviewed. Risks include risks of toxicity, [...] = I,500 mg/day, target serum level 0.8 Lely Resort is known to reduce risk of suicide. [...] can negatively impact mood, motivation, anxiety, sleep, focus/concentrat ion/memory (vigilance, elasticity, processing and attention); can also contribute to development of psychosis.Cannab is/marijuana information:http _s://urmila.nih.go v/publications/d rugfacts/cannabi s-marijuanahttp_ s://www.samhsa.g ov/mpovmxqbbI72. 20: Cannabis dependence, uncomplicated 4. Fatigue -improved Vaping- educted on decreasing vaping and cannabis use Long-term drug therapy 09/02/2024 Other fatigue (ICD-10 - R53.83) Fatigue: Care Instructions material was published 1. Depressed bipolar I disorder - discuss IOP programs- [place] or [facility] PATIENT ASKED ABOUT FLMA for IOP will have IOP completed forms Lely Resort 300 mg twice a day for depression and passive SI - improved Educated on all rx no plans or intent labs ordered monitor for julio therapy TAYE http_s://www.Glo Bags.Paybubble/can cbugj-cyk-jsocql dp-qgysxsegg-qmy d/ http_s://www.nam i.org/About-Ment al-Illness/Menta v-Tnbyld-Rmutafn ons http_s://psychce SourceClear.Paybubble/depres maggie/the-cogniti yn-vgjnmxjh-at-d epression#treatm ents http__s://www.ni .nih.gov/healt h/topics/mental- health-medicatio ns http__s://www.na mi.org/About-Men glenroy-Illness/Eryn tments/Mental-He alth-Medications LABS lithium completed 02/18 will order labs today - educated on importance to have labs [...] and stay hydrated Lexapro 20 mg daily patient wants to stay on all current rx at this time Lely Resort use reviewed. Risks include risks of toxicity, [...] = I,500 mg/day, target serum level 0.8 Lely Resort is known to reduce risk of suicide. [...] can negatively impact mood, motivation, anxiety, sleep, focus/concentrat ion/memory (vigilance, elasticity, processing and attention); can also contribute to development of psychosis.Cannab is/marijuana information:http _s://urmila.nih.go v/publications/d rugfacts/cannabi s-marijuanahttp_ s://www.[facility]. ov/xqanblineM34. 20: Cannabis dependence, uncomplicated 4. Fatigue -improved Vaping- educted on decreasing vaping and cannabis use Long-term drug therapy 12/01/2024 Suicidal ideations (ICD-10 - R45.851) Suicidal Thoughts in a Family Member: Care Instructions material was published, Suicidal Thoughts and Behavior: Care Instructions material was published, Learning About Making a Suicide Safety Plan material was published 1. Depressed bipolar I disorder - discuss IOP programs- [place] or [facility] patient waiting on IOP to check insurance and schedule Lely Resort 300 mg twice a day for depression and passive SI - improved SI thoughts Educated on all rx no plans or intent labs ordered last visit- patient reported labs done at PCP office- wll obtain - Patient has depression with low motivation and interest and self care, low energy discuss and educated on Wellbutrin- had hx Wellbutrin in past Add Wellbutrin XL 150 mg daily in am monitor for julio therapy discuss - patient will find new therapist http_s://www.add it[employer].Paybubble/can oogjl-nbb-gamscv ja-ncdqxrlyk-ibt d/ http_s://www.nam i.org/About-Ment al-Illness/Menta y-Dgfihx-Jgbrjzd ons http_s://psychce Spectrawatt/veroalycia maggie/the-cogniti vl-maacyekw-vl-d epression#treatm ents http__s://www.ni .nih.gov/healt h/topics/mental- health-medicatio ns http__s://www.na mi.org/About-Men glenroy-Illness/Eryn tments/Mental-He alth-Medications - educated on importance to have labs [...] and stay hydrated Lexapro 20 mg daily Lely Resort use reviewed. Risks include risks of toxicity, [...] = I,500 mg/day, target serum level 0.8 Lely Resort is known to reduce risk of suicide. [...] can negatively impact mood, motivation, anxiety, sleep, focus/concentrat ion/memory (vigilance, elasticity, processing and attention); can also contribute to development of psychosis.Cannab is/marijuana information:http _s://urmila.nih.go v/publications/d rugfacts/cannabi s-marijuanahttp_ s://www.[facility]. ov/idpicnyjaT49. 20: Cannabis dependence, uncomplicated 4. Fatigue -improved 5.Vaping- [...] stop smoking hotline given -Quit - Yes [place] Tobacco Quitline Call a Smoking Quitline [employer] [place]'s Smoking Quitline, (7-585-46K-QUIT) Smokefree.gov, which connects you with your State's Quitline, (3-403-GKTCEQC) Veterans Smoking Quitline, (6-140-FUCOYSB) Long-term drug therapy 12/30/2024 Suicidal ideations (ICD-10 - R45.851) Suicidal Thoughts in a Family Member: Care Instructions material was published, Suicidal Thoughts and Behavior: Care Instructions material was published, Learning About Making a Suicide Safety Plan material was published 1. Depressed bipolar I disorder - discuss IOP programs- [facility] or [facility] patient waiting on IOP to check insurance and schedule Lely Resort 300 mg twice a day for depression and passive SI - improved SI thoughts Educated on all rx no plans or intent labs ordered last visit- patient reported labs done at PCP office- will obtain - Patient has depression with low motivation and interest and self care, low energy discuss and educated on Wellbutrin- had hx Wellbutrin in past Wellbutrin XL 150 mg daily in am- improved monitor for julio therapy discuss - patient will find new therapist http_s://www.Meludia/can fqppl-smu-ptqyuo wt-bvoqdlmcl-kkw d/ http_s://www.nam i.org/About-Ment al-Illness/Menta f-Pquvih-Klbbeya ons http_s://Bigpoint/depres maggie/the-cogniti se-tgrfhrpl-yi-d epression#treatm ents http__s://www.ni mh.nih.gov/healt h/topics/mental- health-medicatio ns http__s://www.na mi.org/About-Men glenroy-Illness/Eryn tments/Mental-He alth-Medications - educated on importance to have labs [...] and stay hydrated Lexapro 20 mg daily Lely Resort use reviewed. Risks include risks of toxicity, [...] = I,500 mg/day, target serum level 0.8 Lely Resort is known to reduce risk of suicide. [...] can negatively impact mood, motivation, anxiety, sleep, focus/concentrat ion/memory (vigilance, elasticity, processing and attention); can also contribute to development of psychosis.Cannab is/marijuana information:http _s://urmila.nih.go v/publications/d rugfacts/cannabi s-marijuanahttp_ s://www.[facility].g ov/tstcrwqydM26. 20: Cannabis dependence, uncomplicated 4. Fatigue -improved 5.Vaping- [...] stop smoking hotline given Quit - Yes [place] Tobacco Quitline Call a Smoking Quitline The [employer] [place]'s Smoking Quitline, (2-438-17X-QUIT) Smokefree.gov, which connects you with your State's Quitline, (2-734-LWWOVYV) Veterans Smoking Quitline, (7-235-FZOBCKO) Long-term drug therapy 06/29/2025 Other fatigue (ICD-10 - R53.83) Fatigue: Care Instructions material was published 1. Depressed bipolar I disorder - hx discuss IOP programs- [place] [facility] patient waiting on IOP to check insurance and schedule Lely Resort 300 mg twice a day for depression [...] discuss - patient will find new therapist http_s://www.Meludia/can lmnjr-nns-rtrlwt cx-pebmvwedj-ryt d/ http_s://www.nam i.org/About-Ment al-Illness/Menta p-Omepus-Ezqnmfx ons http_s://psychValley Automotive Investment Group/depres maggie/the-cogniti ww-xevhezwb-hw-d epression#treatm ents http__s://www.ni .nih.gov/healt h/topics/mental- health-medicatio ns http__s://www.na mi.org/About-Men glenroy-Illness/Eryn tments/Mental-He alth-Medications - educated on importance to have labs [...] and stay hydrated Lexapro 20 mg daily Lely Resort use reviewed. Risks include risks of toxicity, [...] = I,500 mg/day, target serum level 0.8 Lely Resort is known to reduce risk of suicide. [...] can negatively impact mood, motivation, anxiety, sleep, focus/concentrat ion/memory (vigilance, elasticity, processing and attention); can also contribute to development of psychosis.Cannab is/marijuana information:http _s://urmila.nih.go v/publications/d rugfacts/cannabi s-marijuanahttp_ s://www.samhsa.g ov/gwjxohqqoQ80. 20: Cannabis dependence, uncomplicated 4. Fatigue -improved 5.Vaping- [...] stop smoking hotline given -Quit - Yes [place] Tobacco Quitline Call a Smoking Quitline [employer] [place]'s Smoking Quitline, (0-856-75N-QUIT) Smokefree.gov, which connects you with your State's Quitline, (9-345-RFKGTDU) Veterans Smoking Quitline, (7-493-FEKFTYJ) Long-term drug therapy 06/29/2025 Other detention (current) drug therapy (ICD-10 - Z79.899) Medication Refill: Care Instructions material was published 1. Depressed bipolar I disorder - hx discuss IOP programs- [place] [facility] patient waiting on IOP to check insurance and schedule Lely Resort 300 mg twice a day for depression [...] discuss - patient will find new therapist http_s://www.Meludia/can xttal-oam-jqdntm vs-kphyddxyr-jfl d/ http_s://www.nam i.org/About-Ment al-Illness/Menta l-Wrvmbm-Dhxsrpa ons http_s://psychce SourceClear.com/sam maggie/the-cogniti ty-nscqfttj-me-d epression#treatm ents http__s://www.ni mh.nih.gov/healt h/topics/mental- health-medicatio ns http__s://www.na mi.org/About-Men glenroy-Illness/Eryn tments/Mental-He alth-Medications - educated on importance to have labs [...] and stay hydrated Lexapro 20 mg daily Lely Resort use reviewed. Risks include risks of toxicity, [...] = I,500 mg/day, target serum level 0.8 Lely Resort is known to reduce risk of suicide. [...] can negatively impact mood, motivation, anxiety, sleep, focus/concentrat ion/memory (vigilance, elasticity, processing and attention); can also contribute to development of psychosis.Cannab is/marijuana information:http _s://urmila.nih.go v/publications/d rugfacts/cannabi s-marijuanahttp_ s://www.[facility].g ov/rlygrvlocW98. 20: Cannabis dependence, uncomplicated 4. Fatigue -improved 5.Vaping- [...] stop smoking hotline given -Quit - Yes [place] Tobacco Quitline Call a Smoking Quitline [employer] [place]'s Smoking Quitline, (8-074-87P-QUIT) Smokefree.gov, which connects you with your State's Quitline, (8-505-KJABMAL) Veterans Smoking Quitline, (5-204-LCCAWMC) Long-term drug therapy 12/30/2024 Other fatigue (ICD-10 - R53.83) Fatigue: Care Instructions material was published 1. Depressed bipolar I disorder - discuss IOP programs- [place] or [facility] patient waiting on IOP to check insurance and schedule Lely Resort 300 mg twice a day for depression and passive SI - improved SI thoughts Educated on all rx no plans or intent labs ordered last visit- patient reported labs done at PCP office- will obtain - Patient has depression with low motivation and interest and self care, low energy discuss and educated on Wellbutrin- had hx Wellbutrin in past Wellbutrin XL 150 mg daily in am- improved monitor for julio therapy discuss - patient will find new therapist http_s://www.add itudeNetlogon.Paybubble/can mlduo-rqy-papsxs kt-zqfacgfok-qaq d/ http_s://www.nam i.org/About-Ment al-Illness/Menta f-Hxtrnr-Alhbmqq ons http_s://psychce ntral.com/depralycia maggie/the-cogniti rb-touyjnfh-cp-d epression#treatm ents http__s://www.ni mh.nih.gov/healt h/topics/mental- health-medicatio ns http__s://www.na mi.org/About-Men glenroy-Illness/Eryn tments/Mental-He alth-Medications - educated on importance to have labs [...] and stay hydrated Lexapro 20 mg daily Lely Resort use reviewed. Risks include risks of toxicity, [...] = I,500 mg/day, target serum level 0.8 Lely Resort is known to reduce risk of suicide. [...] can negatively impact mood, motivation, anxiety, sleep, focus/concentrat ion/memory (vigilance, elasticity, processing and attention); can also contribute to development of psychosis.Cannab is/marijuana information:http _s://urmila.nih.go v/publications/d rugfacts/cannabi s-marijuanahttp_ s://www.[facility]. ov/hubehclilQ67. 20: Cannabis dependence, uncomplicated 4. Fatigue -improved 5.Vaping- [...] stop smoking hotline given -Quit - Yes [place] Tobacco Quitline Call a Smoking Quitline [employer] [place]'s Smoking Quitline, (5-009-05B-QUIT) Smokefree.gov, which connects you with your State's Quitline, (4-509-XFLGVCF) Veterans Smoking Quitline, (9-378-GTPGJLI) Long-term drug therapy 12/01/2024 Other fatigue (ICD-10 - R53.83) Fatigue: Care Instructions material was published 1. Depressed bipolar I disorder - discuss IOP programs- [place] or [facility] patient waiting on IOP to check insurance and schedule Lely Resort 300 mg twice a day for depression and passive SI - improved SI thoughts Educated on all rx no plans or intent labs ordered last visit- patient reported labs done at PCP office- wll obtain - Patient has depression with low motivation and interest and self care, low energy discuss and educated on Wellbutrin- had hx Wellbutrin in past Add Wellbutrin XL 150 mg daily in am monitor for julio therapy discuss - patient will find new therapist http_s://www.add Peak.Paybubble/can wmaxb-usj-jpwfyy rk-brtdjtkat-eze d/ http_s://www.nam i.org/About-Ment al-Illness/Menta u-Oywyac-Atgztjj ons http_s://psychce ntral.com/sam serrano/the-cogniti lg-zvuibhlf-jj-d epression#treatm ents http__s://www.ni .nih.gov/healt h/topics/mental- health-medicatio ns http__s://www.na mi.org/About-Men glenroy-Illness/Eryn tments/Mental-He alth-Medications - educated on importance to have labs [...] and stay hydrated Lexapro 20 mg daily Lely Resort use reviewed. Risks include risks of toxicity, [...] = I,500 mg/day, target serum level 0.8 Lely Resort is known to reduce risk of suicide. [...] can negatively impact mood, motivation, anxiety, sleep, focus/concentrat ion/memory (vigilance, elasticity, processing and attention); can also contribute to development of psychosis.Cannab is/marijuana information:http _s://urmila.nih.go v/publications/d rugfacts/cannabi s-marijuanahttp_ s://www.[facility].g ov/wbavvbdulD95. 20: Cannabis dependence, uncomplicated 4. Fatigue -improved 5.Vaping- [...] nicotine products and stop smoking hotline given 085-Quit - Yes [place] Tobacco Quitline Call a Smoking Quitline The [employer] [place]'s Smoking Quitline, (9-218-99S-QUIT) Smokefree.gov, which connects you with your State's Quitline, (4-119-ZPFPODA) Veterans Smoking Quitline, (7-732-WEGSESH) Long-term drug therapy 09/02/2024 Other detention (current) drug therapy (ICD-10 - Z79.899) Medication Refill: Care Instructions material was published 1. Depressed bipolar I disorder - discuss IOP programs- [place] or [facility] PATIENT ASKED ABOUT FLMA for IOP will have IOP completed forms Lely Resort 300 mg twice a day for depression and passive SI - improved Educated on all rx no plans or intent labs ordered monitor for julio therapy TAYE http_s://www.Glo Bags.Paybubble/can rrauc-ejw-ldhkdc dt-qgumxpdmq-orz d/ http_s://www.nam i.org/About-Ment al-Illness/Menta a-Tnhvhf-Cmmnkym ons http_s://psychce Spectrawatt/sam serrano/the-cogniti pi-yyjuattj-lc-d epression#treatm ents http__s://www.ni .nih.gov/healt h/topics/mental- health-medicatio ns http__s://www.na mi.org/About-Men glenroy-Illness/Eryn tments/Mental-He alth-Medications LABS lithium completed 02/18 will order labs today - educated on importance to have labs [...] and stay hydrated Lexapro 20 mg daily patient wants to stay on all current rx at this time Lely Resort use reviewed. Risks include risks of toxicity, [...] = I,500 mg/day, target serum level 0.8 Lely Resort is known to reduce risk of suicide. [...] can negatively impact mood, motivation, anxiety, sleep, focus/concentrat ion/memory (vigilance, elasticity, processing and attention); can also contribute to development of psychosis.Cannab is/marijuana information:http _s://urmila.nih.go v/publications/d rugfacts/cannabi s-marijuanahttp_ s://www.[facility]. ov/jrxotzeqxN24. 20: Cannabis dependence, uncomplicated 4. Fatigue -improved Vaping- educted on decreasing vaping and cannabis use Long-term drug therapy 09/02/2024 Marijuana use (ICD-10 - F12.90) Marijuana Use: Care Instructions material was published, Learning About Cannabis Use Disorder material was published 1. Depressed bipolar I disorder - discuss IOP programs- [place] [facility] PATIENT ASKED ABOUT FLMA for IOP will have IOP completed forms Lely Resort 300 mg twice a day for depression and passive SI - improved Educated on all rx no plans or intent labs ordered monitor for julio therapy TAYE http_s://www.add itudeNetlogon.Paybubble/can xyaoc-iuu-friekz ad-isglmvdhl-bra d/ http_s://www.nam i.org/About-Ment al-Illness/Menta p-Kbxyeo-Powduhl ons http_s://psychce ntral.com/sam maggie/the-cogniti gc-llyisqyt-jc-d epression#treatm ents http__s://www.ni mh.nih.gov/healt h/topics/mental- health-medicatio ns http__s://www.na mi.org/About-Men glenroy-Illness/Eryn tments/Mental-He alth-Medications LABS lithium completed 02/18 will order labs today - educated on importance to have labs [...] and stay hydrated Lexapro 20 mg daily patient wants to stay on all current rx at this time Lely Resort use reviewed. Risks include risks of toxicity, [...] = I,500 mg/day, target serum level 0.8 Lely Resort is known to reduce risk of suicide. [...] can negatively impact mood, motivation, anxiety, sleep, focus/concentrat ion/memory (vigilance, elasticity, processing and attention); can also contribute to development of psychosis.Cannab is/marijuana information:http _s://urmila.nih.go v/publications/d rugfacts/cannabi s-marijuanahttp_ s://www.[facility]. ov/zdnffiirzQ37. 20: Cannabis dependence, uncomplicated 4. Fatigue -improved Vaping- educted on decreasing vaping and cannabis use Long-term drug therapy 12/01/2024 Other detention (current) drug therapy (ICD-10 - Z79.899) Medication Refill: Care Instructions material was published 1. Depressed bipolar I disorder - discuss IOP programs- [place], [place] or [facility] patient waiting on IOP to check insurance and schedule Lely Resort 300 mg twice a day for depression and passive SI - improved SI thoughts Educated on all rx no plans or intent labs ordered last visit- patient reported labs done at PCP office- wll obtain - Patient has depression with low motivation and interest and self care, low energy discuss and educated on Wellbutrin- had hx Wellbutrin in past Add Wellbutrin XL 150 mg daily in am monitor for julio therapy discuss - patient will find new therapist http_s://www.Meludia/can isyok-xlz-qyivzf bm-iyyidvfii-ukl d/ http_s://www.nam i.org/About-Ment al-Illness/Menta b-Sgyjcw-Brkvdkw ons http_s://psychce SourceClear.com/depralycia maggie/the-cogniti oy-knbsrhpa-le-d epression#treatm ents http__s://www.ni mh.nih.gov/healt h/topics/mental- health-medicatio ns http__s://www.na mi.org/About-Men glenroy-Illness/Eryn tments/Mental-He alth-Medications - educated on importance to have labs [...] and stay hydrated Lexapro 20 mg daily Lely Resort use reviewed. Risks include risks of toxicity, [...] = I,500 mg/day, target serum level 0.8 Lely Resort is known to reduce risk of suicide. [...] can negatively impact mood, motivation, anxiety, sleep, focus/concentrat ion/memory (vigilance, elasticity, processing and attention); can also contribute to development of psychosis.Cannab is/marijuana information:http _s://urmila.nih.go v/publications/d rugfacts/cannabi s-marijuanahttp_ s://www.[facility].g ov/xkwpnomxqO94. 20: Cannabis dependence, uncomplicated 4. Fatigue -improved 5.Vaping- [...] stop smoking hotline given -Quit - Yes [place] Tobacco Quitline Call a Smoking Quitline The [employer] [place]'s Smoking Quitline, (3-690-63C-QUIT) Smokefree.gov, which connects you with your State's Quitline, (5-753-EFAYNFL) Veterans Smoking Quitline, (9-897-SYNLKDT) Long-term drug therapy 12/30/2024 Other detention (current) drug therapy (ICD-10 - Z79.899) Medication Refill: Care Instructions material was published 1. Depressed bipolar I disorder - discuss IOP programs- [place] [facility] patient waiting on IOP to check insurance and schedule Lely Resort 300 mg twice a day for depression and passive SI - improved SI thoughts Educated on all rx no plans or intent labs ordered last visit- patient reported labs done at PCP office- will obtain - Patient has depression with low motivation and interest and self care, low energy discuss and educated on Wellbutrin- had hx Wellbutrin in past Wellbutrin XL 150 mg daily in am- improved monitor for julio therapy discuss - patient will find new therapist http_s://www.add itudeNetlogon.Paybubble/can qijqw-ayc-cdfbeg xb-tudlwywlq-sdo d/ http_s://www.nam i.org/About-Ment al-Illness/Menta b-Jwgcpp-Gabwtvu ons http_s://psychce ntral.com/depres maggie/the-cogniti yr-fgmjqhle-qx-d epression#treatm ents http__s://www.ni mh.nih.gov/healt h/topics/mental- health-medicatio ns http__s://www.na mi.org/About-Men glenroy-Illness/Eryn limants/Mental-He alth-Medications - educated on importance to have labs [...] and stay hydrated Lexapro 20 mg daily Lely Resort use reviewed. Risks include risks of toxicity, [...] = I,500 mg/day, target serum level 0.8 Lely Resort is known to reduce risk of suicide. [...] can negatively impact mood, motivation, anxiety, sleep, focus/concentrat ion/memory (vigilance, elasticity, processing and attention); can also contribute to development of psychosis.Cannab is/marijuana information:http _s://urmila.nih.go v/publications/d rugfacts/cannabi s-marijuanahttp_ s://www.[facility]. ov/gorxwdcqdE32. 20: Cannabis dependence, uncomplicated 4. Fatigue -improved 5.Vaping- [...] nicotine products and stop smoking hotline given 0-Quit - Yes [place] Tobacco Quitline Call a Smoking Quitline The [employer] [place]'s Smoking Quitline, (3-541-16I-QUIT) Smokefree.gov, which connects you with your State's Quitline, (4-604-LFVSUHU) Veterans Smoking Quitline, (3-487-OPAMQJC) Long-term drug therapy 06/29/2025 Marijuana use (ICD-10 - F12.90) Marijuana Use: Care Instructions material was published, Learning About Cannabis Use Disorder material was published 1. Depressed bipolar I disorder - hx discuss IOP programs- [place] [facility] patient waiting on IOP to check insurance and schedule Lely Resort 300 mg twice a day for depression [...] discuss - patient will find new therapist http_s://www.Glo Bags.Paybubble/can agups-wbf-kvzyvu lb-totxboyqh-vfj d/ http_s://www.nam i.org/About-Ment al-Illness/Menta v-Ebptgi-Eqlzoqs ons http_s://psychce ntral.com/sam serrano/the-cogniti uw-ctnmjoft-cx-d epression#treatm ents http__s://www.ni .nih.gov/healt h/topics/mental- health-medicatio ns http__s://www.na mi.org/About-Men glenroy-Illness/Eryn tments/Mental-He alth-Medications - educated on importance to have labs [...] and stay hydrated Lexapro 20 mg daily Lely Resort use reviewed. Risks include risks of toxicity, [...] = I,500 mg/day, target serum level 0.8 Lely Resort is known to reduce risk of suicide. [...] can negatively impact mood, motivation, anxiety, sleep, focus/concentrat ion/memory (vigilance, elasticity, processing and attention); can also contribute to development of psychosis.Cannab is/marijuana information:http _s://urmila.nih.go v/publications/d rugfacts/cannabi s-marijuanahttp_ s://www.[facility].g ov/sovxhcsdnA90. 20: Cannabis dependence, uncomplicated 4. Fatigue -improved 5.Vaping- [...] nicotine products and stop smoking hotline given 331-Quit - Yes [place] Tobacco Quitline Call a Smoking Quitline The [employer] [facility] [place]'s Smoking Quitline, (4-122-34Y-QUIT) Smokefree.gov, which connects you with your State's Quitline, (2-522-INGAPSG) [facility] Smoking Quitline, (0-733-MIMZOUK) Long-term drug therapy 12/30/2024 Marijuana use (ICD-10 - F12.90) Marijuana Use: Care Instructions material was published, Learning About Cannabis Use Disorder material was published 1. Depressed bipolar I disorder - discuss IOP programs- [place], [place] or [facility] patient waiting on IOP to check insurance and schedule Lely Resort 300 mg twice a day for depression and passive SI - improved SI thoughts Educated on all rx no plans or intent labs ordered last visit- patient reported labs done at PCP office- will obtain - Patient has depression with low motivation and interest and self care, low energy discuss and educated on Wellbutrin- had hx Wellbutrin in past Wellbutrin XL 150 mg daily in am- improved monitor for julio therapy discuss - patient will find new therapist http_s://www.add itiScience Interventional.Paybubble/can wixnk-gbl-qyfpfd ux-uzdtjwaon-hid d/ http_s://www.nam i.org/About-Ment al-Illness/Menta m-Jmrqxm-Baxpikn ons http_s://psychce Spectrawatt/sam maggie/the-cogniti at-zrmmifdf-yx-d epression#treatm ents http__s://www.ni .nih.gov/healt h/topics/mental- health-medicatio ns http__s://www.na mi.org/About-Men glenroy-Illness/Eryn tments/Mental-He alth-Medications - educated on importance to have labs [...] and stay hydrated Lexapro 20 mg daily Lely Resort use reviewed. Risks include risks of toxicity, [...] = I,500 mg/day, target serum level 0.8 Lely Resort is known to reduce risk of suicide. [...] can negatively impact mood, motivation, anxiety, sleep, focus/concentrat ion/memory (vigilance, elasticity, processing and attention); can also contribute to development of psychosis.Cannab is/marijuana information:http _s://urmila.nih.go v/publications/d rugfacts/cannabi s-marijuanahttp_ s://www.[facility]. ov/tvspvxluqX62. 20: Cannabis dependence, uncomplicated 4. Fatigue -improved 5.Vaping- [...] nicotine products and stop smoking hotline given 574-Quit - Yes [place] Tobacco Quitline Call a Smoking Quitline The [employer] [facility] [place]'s Smoking Quitline, (1-377-99V-QUIT) Smokefree.gov, which connects you with your State's Quitline, (8-252-LORZDWN) [facility] Smoking Quitline, (2-861-ZPOPBAG) Long-term drug therapy 06/29/2025 Engages in vaping (ICD-10 - Z72.89) 1. Depressed bipolar I disorder - hx discuss IOP programs- [place] or [facility] patient waiting on IOP to check insurance and schedule Lely Resort 300 mg twice a day for depression [...] discuss - patient will find new therapist http_s://www.Meludia/can sugzg-bba-ipcaxc fx-kwoisvide-sra d/ http_s://www.nam i.org/About-Ment al-Illness/Menta d-Gcpcse-Akxgojk ons http_s://Bigpoint/depres maggie/the-cogniti tv-xihlwwnd-vd-d epression#treatm ents http__s://www.ni .nih.gov/healt h/topics/mental- health-medicatio ns http__s://www.na mi.org/About-Men glenroy-Illness/Eryn tments/Mental-He alth-Medications - educated on importance to have labs [...] and stay hydrated Lexapro 20 mg daily Lely Resort use reviewed. Risks include risks of toxicity, [...] = I,500 mg/day, target serum level 0.8 Lely Resort is known to reduce risk of suicide. [...] can negatively impact mood, motivation, anxiety, sleep, focus/concentrat ion/memory (vigilance, elasticity, processing and attention); can also contribute to development of psychosis.Cannab is/marijuana information:http _s://urmila.nih.go v/publications/d rugfacts/cannabi s-marijuanahttp_ s://www.[facility]. ov/mckkzekgjQ14. 20: Cannabis dependence, uncomplicated 4. Fatigue -improved 5.Vaping- [...] stop smoking hotline given Quit - Yes [place] Tobacco Quitline Call a Smoking Quitline [employer] [facility] [place]'s Smoking Quitline, (6-358-50T-QUIT) Smokefree.gov, which connects you with your State's Quitline, (8-142-OVTEJLM) [place] Smoking Quitline, (6-912-SGJRLKE) Long-term drug therapy 09/02/2024 Engages in vaping (ICD-10 - Z72.89) 1. Depressed bipolar I disorder - discuss IOP programs- [place] or [facility] PATIENT ASKED ABOUT [facility] for IOP will have IOP completed forms Lely Resort 300 mg twice a day for depression and passive SI - improved Educated on all rx no plans or intent labs ordered monitor for julio therapy TAYE http_s://www.Meludia/can hspeq-hqr-hkdgvh ux-izaedkosu-dzc d/ http_s://www.nam i.org/About-Ment al-Illness/Menta r-Ebzilj-Rqrjfze ons http_s://Bigpoint/depres maggie/the-cogniti nb-zejkrmxt-nk-d epression#treatm ents http__s://www.ni .nih.gov/healt h/topics/mental- health-medicatio ns http__s://www.na mi.org/About-Men glenroy-Illness/Eryn tments/Mental-He alth-Medications LABS lithium completed 02/18 will order labs today - educated on importance to have labs [...] and stay hydrated Lexapro 20 mg daily patient wants to stay on all current rx at this time Lely Resort use reviewed. Risks include risks of toxicity, [...] = I,500 mg/day, target serum level 0.8 Lely Resort is known to reduce risk of suicide. [...] can negatively impact mood, motivation, anxiety, sleep, focus/concentrat ion/memory (vigilance, elasticity, processing and attention); can also contribute to development of psychosis.Cannab is/marijuana information:http _s://urmila.nih.go v/publications/d rugfacts/cannabi s-marijuanahttp_ s://www.[facility].g ov/tgmjcafvmG04. 20: Cannabis dependence, uncomplicated 4. Fatigue -improved Vaping- educted on decreasing vaping and cannabis use Long-term drug therapy 12/01/2024 Marijuana use (ICD-10 - F12.90) Marijuana Use: Care Instructions material was published, Learning About Cannabis Use Disorder material was published 1. Depressed bipolar I disorder - discuss IOP programs- [place] or [facility] patient waiting on IOP to check insurance and schedule Lely Resort 300 mg twice a day for depression and passive SI - improved SI thoughts Educated on all rx no plans or intent labs ordered last visit- patient reported labs done at PCP office- wll obtain - Patient has depression with low motivation and interest and self care, low energy discuss and educated on Wellbutrin- had hx Wellbutrin in past Add Wellbutrin XL 150 mg daily in am monitor for julio therapy discuss - patient will find new therapist http_s://www.[employer].Paybubble/can vkfoa-upb-xubwda gv-blbvfntno-vuv d/ http_s://www.nam i.org/About-Ment al-Illness/Menta e-Fsfzay-Wyxwvfz ons http_s://psychce Spectrawatt/depres maggie/the-cogniti sd-cududlal-jk-d epression#treatm ents http__s://www.ni .nih.gov/healt h/topics/mental- health-medicatio ns http__s://www.na mi.org/About-Men glenroy-Illness/Eryn tments/Mental-He alth-Medications - educated on importance to have labs [...] and stay hydrated Lexapro 20 mg daily Lely Resort use reviewed. Risks include risks of toxicity, [...] = I,500 mg/day, target serum level 0.8 Lely Resort is known to reduce risk of suicide. [...] can negatively impact mood, motivation, anxiety, sleep, focus/concentrat ion/memory (vigilance, elasticity, processing and attention); can also contribute to development of psychosis.Cannab is/marijuana information:http _s://urmila.nih.go v/publications/d rugfacts/cannabi s-marijuanahttp_ s://www.[facility]. ov/fwmhoyolwG99. 20: Cannabis dependence, uncomplicated 4. Fatigue -improved 5.Vaping- [...] stop smoking hotline given -Quit - Yes [place] Tobacco Quitline Call a Smoking Quitline [employer] [facility] [place]'s Smoking Quitline, (8-513-90T-QUIT) Smokefree.gov, which connects you with your State's Quitline, (3-593-QRKORHJ) [facility] Smoking Quitline, (1-547-RQINZNS) Long-term drug therapy 12/01/2024 Engages in vaping (ICD-10 - Z72.89) 1. Depressed bipolar I disorder - discuss IOP programs- [place] or [facility] patient waiting on IOP to check insurance and schedule Lely Resort 300 mg twice a day for depression and passive SI - improved SI thoughts Educated on all rx no plans or intent labs ordered last visit- patient reported labs done at PCP office- wll obtain - Patient has depression with low motivation and interest and self care, low energy discuss and educated on Wellbutrin- had hx Wellbutrin in past Add Wellbutrin XL 150 mg daily in am monitor for julio therapy discuss - patient will find new therapist http_s://www.Meludia/can iplbe-gzg-usnzbg yv-wqvnygunt-djr d/ http_s://www.nam i.org/About-Ment al-Illness/Menta j-Zrwizc-Irsbqdu ons http_s://Bigpoint/depres maggie/the-cogniti hc-shvdwcfi-mh-d epression#treatm ents http__s://www.ni mh.nih.gov/healt h/topics/mental- health-medicatio ns http__s://www.na mi.org/About-Men glenroy-Illness/Eryn tments/Mental-He alth-Medications - educated on importance to have labs [...] and stay hydrated Lexapro 20 mg daily Lely Resort use reviewed. Risks include risks of toxicity, [...] = I,500 mg/day, target serum level 0.8 Lely Resort is known to reduce risk of suicide. [...] can negatively impact mood, motivation, anxiety, sleep, focus/concentrat ion/memory (vigilance, elasticity, processing and attention); can also contribute to development of psychosis.Cannab is/marijuana information:http _s://urmila.nih.go v/publications/d rugfacts/cannabi s-marijuanahttp_ s://www.[facility].g ov/jsfsplavjZ82. 20: Cannabis dependence, uncomplicated 4. Fatigue -improved 5.Vaping- [...] stop smoking hotline given Quit - Yes [place] Tobacco Quitline Call a Smoking Quitline The [employer] [facility] [place]'s Smoking Quitline, (1-261-26T-QUIT) Smokefree.gov, which connects you with your State's Quitline, (2-562-DQTVNCV) [facility] Smoking Quitline, (1-273-JULFWRX) Long-term drug therapy 12/30/2024 Engages in vaping (ICD-10 - Z72.89) 1. Depressed bipolar I disorder - discuss IOP programs- [place] or [facility] patient waiting on IOP to check insurance and schedule Lely Resort 300 mg twice a day for depression and passive SI - improved SI thoughts Educated on all rx no plans or intent labs ordered last visit- patient reported labs done at PCP office- will obtain - Patient has depression with low motivation and interest and self care, low energy discuss and educated on Wellbutrin- had hx Wellbutrin in past Wellbutrin XL 150 mg daily in am- improved monitor for julio therapy discuss - patient will find new therapist http_s://www.Meludia/can rqsho-ytn-bsgatv jx-jqqvdeixb-ksd d/ http_s://www.nam i.org/About-Ment al-Illness/Menta x-Ixxamr-Nsyczpv ons http_s://psychValley Automotive Investment Group/depres maggie/the-cogniti ed-dpboovav-qf-d epression#treatm ents http__s://www.ni .nih.gov/healt h/topics/mental- health-medicatio ns http__s://www.na mi.org/About-Men glenroy-Illness/Eryn tments/Mental-He alth-Medications - educated on importance to have labs [...] and stay hydrated Lexapro 20 mg daily Lely Resort use reviewed. Risks include risks of toxicity, [...] = I,500 mg/day, target serum level 0.8 Lely Resort is known to reduce risk of suicide. [...] can negatively impact mood, motivation, anxiety, sleep, focus/concentrat ion/memory (vigilance, elasticity, processing and attention); can also contribute to development of psychosis.Cannab is/marijuana information:http _s://urmila.nih.go v/publications/d rugfacts/cannabi s-marijuanahttp_ s://www.samhsa.g ov/zlxkogwpeU50. 20: Cannabis dependence, uncomplicated 4. Fatigue -improved 5.Vaping- [...] stop smoking hotline given -Quit - Yes [place] Tobacco Quitline Call a Smoking Quitline The [employer] [facility] [place]'s Smoking Quitline, (1-825-14F-QUIT) Smokefree.gov, which connects you with your State's Quitline, (0-048-JMFTSDZ) [facility] Smoking Quitline, (2-310-FHZCVIK) Long-term drug therapy 06/29/2025 Vitamin D deficiency (ICD-10 - E55.9) 1. Depressed bipolar I disorder - hx discuss IOP programs- [place] or [facility] patient waiting on IOP to check insurance and schedule Lely Resort 300 mg twice a day for depression [...] discuss - patient will find new therapist http_s://www.add itHarlyn Medical/can yvmuf-say-zxjzaj kf-dcembpiiy-xqj d/ http_s://www.nam i.org/About-Ment al-Illness/Menta q-Lykkip-Lymitvw ons http_s://psychce SourceClear.Paybubble/depres maggie/the-cogniti fl-ileetntn-cx-d epression#treatm ents http__s://www.ni mh.nih.gov/healt h/topics/mental- health-medicatio ns http__s://www.na mi.org/About-Men glenroy-Illness/Eryn tments/Mental-He alth-Medications - educated on importance to have labs [...] and stay hydrated Lexapro 20 mg daily Lely Resort use reviewed. Risks include risks of toxicity, [...] = I,500 mg/day, target serum level 0.8 Lely Resort is known to reduce risk of suicide. [...] can negatively impact mood, motivation, anxiety, sleep, focus/concentrat ion/memory (vigilance, elasticity, processing and attention); can also contribute to development of psychosis.Cannab is/marijuana information:http _s://urmila.nih.go v/publications/d rugfacts/cannabi s-marijuanahttp_ s://www.[facility].g ov/zzrhijegwE01. 20: Cannabis dependence, uncomplicated 4. Fatigue -improved 5.Vaping- [...] stop smoking hotline given -Quit - Yes [place] Tobacco Quitline Call a Smoking Quitline The [employer] [place]'s Smoking Quitline, (8-851-51G-QUIT) Smokefree.gov, which connects you with your State's Quitline, (1-983-VOXPKNW) [facility] Smoking Quitline, (7-409-VQWKAJR) Long-term drug therapy 12/30/2024 Vitamin D deficiency (ICD-10 - E55.9) 1. Depressed bipolar I disorder - discuss IOP programs- [place] [facility] patient waiting on IOP to check insurance and schedule Lely Resort 300 mg twice a day for depression and passive SI - improved SI thoughts Educated on all rx no plans or intent labs ordered last visit- patient reported labs done at PCP office- will obtain - Patient has depression with low motivation and interest and self care, low energy discuss and educated on Wellbutrin- had hx Wellbutrin in past Wellbutrin XL 150 mg daily in am- improved monitor for julio therapy discuss - patient will find new therapist http_s://www.add itudemaRescale.Paybubble/can fmavd-ddw-afcrxh wh-wyvjotcyw-qqa d/ http_s://www.nam i.org/About-Ment al-Illness/Menta w-Ckjyaj-Nifwwuo ons http_s://psychce ntral.com/depres maggie/the-cogniti mq-kzazvoxu-dy-d epression#treatm ents http__s://www.ni mh.nih.gov/healt h/topics/mental- health-medicatio ns http__s://www.na mi.org/About-Men glenroy-Illness/Eryn tments/Mental-He alth-Medications - educated on importance to have labs [...] and stay hydrated Lexapro 20 mg daily Lely Resort use reviewed. Risks include risks of toxicity, [...] = I,500 mg/day, target serum level 0.8 Lely Resort is known to reduce risk of suicide. [...] can negatively impact mood, motivation, anxiety, sleep, focus/concentrat ion/memory (vigilance, elasticity, processing and attention); can also contribute to development of psychosis.Cannab is/marijuana information:http _s://urmila.nih.go v/publications/d rugfacts/cannabi s-marijuanahttp_ s://www.[facility] hospital[facility]sa.g ov/nbxfmtmocA03. 20: Cannabis dependence, uncomplicated 4. Fatigue -improved 5.Vaping- [...] nicotine products and stop smoking hotline given 190-Quit - Yes [place] Tobacco Quitline Call a Smoking Quitline The [employer] [facility] [place]'s Smoking Quitline, (0-500-64F-QUIT) Smokefree.gov, which connects you with your State's Quitline, (0-239-UCWVXMO) [facility] Smoking Quitline, (9-393-ZYYDNDV) Long-term drug therapy 12/01/2024 Vitamin D deficiency (ICD-10 - E55.9) 1. Depressed bipolar I disorder - discuss IOP programs- [place] [facility] patient waiting on IOP to check insurance and schedule Lely Resort 300 mg twice a day for depression and passive SI - improved SI thoughts Educated on all rx no plans or intent labs ordered last visit- patient reported labs done at PCP office- wll obtain - Patient has depression with low motivation and interest and self care, low energy discuss and educated on Wellbutrin- had hx Wellbutrin in past Add Wellbutrin XL 150 mg daily in am monitor for julio therapy discuss - patient will find new therapist http_s://www.add itudeNetlogon.Paybubble/can duiiu-shw-gbqbgu ir-mzsqggdxu-qhd d/ http_s://www.nam i.org/About-Ment al-Illness/Menta k-Jyudkj-Ccbrlpx ons http_s://psychce ntral.com/depres maggie/the-cogniti nz-diqpenfy-nj-d epression#treatm ents http__s://www.ni .nih.gov/healt h/topics/mental- health-medicatio ns http__s://www.na mi.org/About-Men glenroy-Illness/Eryn limants/Mental-He alth-Medications - educated on importance to have labs [...] and stay hydrated Lexapro 20 mg daily Lely Resort use reviewed. Risks include risks of toxicity, [...] = I,500 mg/day, target serum level 0.8 Lely Resort is known to reduce risk of suicide. [...] can negatively impact mood, motivation, anxiety, sleep, focus/concentrat ion/memory (vigilance, elasticity, processing and attention); can also contribute to development of psychosis.Cannab is/marijuana information:http _s://urmila.nih.go v/publications/d rugfacts/cannabi s-marijuanahttp_ s://www.[facility]. ov/gkloojomaR59. 20: Cannabis dependence, uncomplicated 4. Fatigue -improved 5.Vaping- [...] nicotine products and stop smoking hotline given 998-Quit - Yes [place] Tobacco Quitline Call a Smoking Quitline The [employer] [facility] [place]'s Smoking Quitline, (1-094-89Q-QUIT) Smokefree.gov, which connects you with your State's Quitline, (1-604-XHUHWWF) [facility] Smoking Quitline, (9-409-DXULINV) Long-term drug therapy 09/02/2024 Vitamin D deficiency (ICD-10 - E55.9) 1. Depressed bipolar I disorder - discuss IOP programs- [place] [facility] PATIENT ASKED ABOUT [facility] for IOP will have IOP completed forms Lely Resort 300 mg twice a day for depression and passive SI - improved Educated on all rx no plans or intent labs ordered monitor for julio therapy TAYE http_s://www.add itudeNetlogon.Paybubble/can mjmdm-oho-efssym lf-fuebqkcxw-hgx d/ http_s://www.nam i.org/About-Ment al-Illness/Menta a-Kbltdo-Wpjfrqi ons http_s://psychce ntral.com/depres maggie/the-cogniti gg-sxvrcotj-oz-d epression#treatm ents http__s://www.ni .nih.gov/healt h/topics/mental- health-medicatio ns http__s://www.na mi.org/About-Men glenroy-Illness/Eryn tments/Mental-He alth-Medications LABS lithium completed 02/18 will order labs today - educated on importance to have labs [...] and stay hydrated Lexapro 20 mg daily patient wants to stay on all current rx at this time Lely Resort use reviewed. Risks include risks of toxicity, [...] = I,500 mg/day, target serum level 0.8 Lely Resort is known to reduce risk of suicide. [...] can negatively impact mood, motivation, anxiety, sleep, focus/concentrat ion/memory (vigilance, elasticity, processing and attention); can also contribute to development of psychosis.Cannab is/marijuana information:http _s://urmila.nih.go v/publications/d rugfacts/cannabi s-marijuanahttp_ s://www.[facility]. ov/zcywafunnK88. 20: Cannabis dependence, uncomplicated 4. Fatigue -improved Vaping- educted on decreasing vaping and cannabis use Long-term drug therapy 12/30/2024 Encounter for screening for depression (ICD-10 - Z13.31) 1. Depressed bipolar I disorder - discuss IOP programs- [place] [facility] patient waiting on IOP to check insurance and schedule Lely Resort 300 mg twice a day for depression and passive SI - improved SI thoughts Educated on all rx no plans or intent labs ordered last visit- patient reported labs done at PCP office- will obtain - Patient has depression with low motivation and interest and self care, low energy discuss and educated on Wellbutrin- had hx Wellbutrin in past Wellbutrin XL 150 mg daily in am- improved monitor for julio therapy discuss - patient will find new therapist http_s://www.add itudeNetlogon.Paybubble/can cnjvu-dje-qzpudc fc-knuvewuwr-blf d/ http_s://www.nam i.org/About-Ment al-Illness/Menta m-Jecmlt-Nvhgicp ons http_s://psychce ntral.com/depralycia maggie/the-cogniti ab-bgvsxrzp-vn-d epression#treatm ents http__s://www.ni mh.nih.gov/healt h/topics/mental- health-medicatio ns http__s://www.na mi.org/About-Men glenroy-Illness/Eryn tments/Mental-He alth-Medications - educated on importance to have labs [...] and stay hydrated Lexapro 20 mg daily Lely Resort use reviewed. Risks include risks of toxicity, [...] = I,500 mg/day, target serum level 0.8 Lely Resort is known to reduce risk of suicide. [...] can negatively impact mood, motivation, anxiety, sleep, focus/concentrat ion/memory (vigilance, elasticity, processing and attention); can also contribute to development of psychosis.Cannab is/marijuana information:http _s://urmila.nih.go v/publications/d rugfacts/cannabi s-marijuanahttp_ s://www.[facility]. ov/vwmvnvlsiF82. 20: Cannabis dependence, uncomplicated 4. Fatigue -improved 5.Vaping- [...] stop smoking hotline given -Quit - Yes [place] Tobacco Quitline Call a Smoking Quitline The [employer] [place]'s Smoking Quitline, (2-666-85Z-QUIT) Smokefree.gov, which connects you with your State's Quitline, (2-045-DIWMZCD) [place] Smoking Quitline, (4-443-GOGVYRF) Long-term drug therapy 12/30/2024 Encounter for screening for cardiovascular disorders (ICD-10 - Z13.6) 1. Depressed bipolar I disorder - discuss IOP programs- [place] [facility] patient waiting on IOP to check insurance and schedule Lely Resort 300 mg twice a day for depression and passive SI - improved SI thoughts Educated on all rx no plans or intent labs ordered last visit- patient reported labs done at PCP office- will obtain - Patient has depression with low motivation and interest and self care, low energy discuss and educated on Wellbutrin- had hx Wellbutrin in past Wellbutrin XL 150 mg daily in am- improved monitor for julio therapy discuss - patient will find new therapist http_s://www.add itiScience Interventional.Paybubble/can ifklu-hpc-jofpwb dy-bnkzxtpcc-syr d/ http_s://www.nam i.org/About-Ment al-Illness/Menta e-Sgkdfg-Ygzptbg ons http_s://psychce ntral.com/depres maggie/the-cogniti if-ngjiwdzt-kb-d epression#treatm ents http__s://www.ni .nih.gov/healt h/topics/mental- health-medicatio ns http__s://www.na mi.org/About-Men glenroy-Illness/Eryn tments/Mental-He alth-Medications - educated on importance to have labs [...] and stay hydrated Lexapro 20 mg daily Lely Resort use reviewed. Risks include risks of toxicity, [...] = I,500 mg/day, target serum level 0.8 Lely Resort is known to reduce risk of suicide. [...] can negatively impact mood, motivation, anxiety, sleep, focus/concentrat ion/memory (vigilance, elasticity, processing and attention); can also contribute to development of psychosis.Cannab is/marijuana information:http _s://urmila.nih.go v/publications/d rugfacts/cannabi s-marijuanahttp_ s://www.[facility]. ov/vwucjiiuqF45. 20: Cannabis dependence, uncomplicated 4. Fatigue -improved 5.Vaping- [...] nicotine products and stop smoking hotline given 026-Quit - Yes [place] Tobacco Quitline Call a Smoking Quitline The [employer] [place]'s Smoking Quitline, (2-896-53X-QUIT) Smokefree.gov, which connects you with your State's Quitline, (8-498-BKSNEMI) [facility] Smoking Quitline, (0-135-ONBDLPJ) Long-term drug therapy Plan Of Treatment Future Test Test Name Order Date TSH+FREE T4 (79755) 04/29/2024 LIPID PANEL WITH REFLEX TO DIRECT LDL (1 4852) 04/29/2024 COMPREHENSIVE METABOLIC PANEL (75555) CBC (INCLUDES DIFF/PLT) (6399) HEMOGLOBIN A1c (496) 04/29/2024 LITHIUM (613) 04/29/2024 [place] ([place]), Serum 09/02/2024 Liver Function Test (LFT) 09/02/2024 TSH+FREE T4 (10303) 09/02/2024 COMPREHENSIVE METABOLIC PANEL (30832) CBC (INCLUDES DIFF/PLT) (6399) 4 HEMOGLOBIN A1c (496) 09/02/2024 VITAMIN D,25-OH,TOTAL,IA (45848) 024 [place] ([place]), Serum 06/29/2025 LIPID PANEL WITH REFLEX TO DIRECT LDL (1 4852) 06/29/2025 COMPREHENSIVE METABOLIC PANEL (02685) CBC (INCLUDES DIFF/PLT) (6399) 5 HEMOGLOBIN A1c (496) 06/29/2025 TSH W/REFLEX TO FT4 (55722) 06/29/2025 Next Appt Details Provider Name:Jewels Bello , 10/02/2025 08:30:00 AM, [address], [facility] [address], [place], [address], Insurance Providers Payer Name Payer Address Payer Phone Subscriber Number Group Number Insured Name Patient Relationship to Insured Coverage Start Date Coverage End Date [employer] [address] [place] [address] [id number] JACKIE NGUYEN Self - patient is the insured Medical (General) History Medical History History ICD Code Problems: Depressed bipolar I disorder Fatigue Generalized anxiety disorder Long-term drug therapy Suicidal thoughts , Surgical History Surgery Date(Month/Year) Other 05/29/2017
--- OUTSIDE RECORDS SUMMARY | 2025-06-29 10:27 | XMS_ITS | Clinical Summary ---
Author Organization [facility] Address [facility] [place] [address] Care Team Providers Care Evaluation Specialist Name Role Phone Unavailable Primary Care Provider Unavailabl e Allergies No known active allergies Medications emtricitabine-te nofovir 200-300 MG tablet Take 1 tablet by mouth daily. Active Family History Medical History Relation Comments Heart Disease Maternal Grandfather Heart Disease Maternal Grandmother Stroke Maternal Grandmother Heart Disease Paternal Grandfather Relation Status Comments Maternal Grandfather Maternal Grandmother Paternal Grandfather Social History Tobacco Use Types Packs/Day Years Used Date Smoking Tobacco: Some Days Cigarettes Smokeless Tobacco: Never Alcohol Use Standard Drinks/Week Comments Yes 0 (1 standard drink = 0.6 oz pur e alcohol) occasionally Sex and Gender Information Value Date Recorded Sex Assigned at Not on file Legal Sex Male 11:45 PM CDT Gender Identity Not on file Sexual Orientation Not on file Last Filed Vital Signs Vital Sign Reading Time Taken Comments Blood Pressure 140/99 01/14/2018 6:03 PM CDT Pulse 92 01/14/2018 6:03 PM CDT Temperature 36.6 C (97.8 F) 01/14/2018 3:57 PM CDT Respiratory Rate 18 01/14/2018 6:03 PM CDT Oxygen Saturation 99% 01/14/2018 6:03 PM CDT Inhaled Oxygen Concentration - - Weight 130.2 kg (287 lb) 01/14/2018 3:57 PM CDT Height 182.9 cm (6') 01/14/2018 3:57 PM CDT Body Mass Index 38.92 01/14/2018 3:57 PM CDT Plan of Treatment Health Maintenance Due Date Last Done Comments Annual Physical 1993 Hepatitis C 2008 DTaP, Tdap and Td Vaccines ( 1 - Tdap) 2009 Hepatitis B Vaccines (1 of 3 - 19+ 3-dose series) 2009 Pneumococcal Vaccine: Pediat rics (0 to 5 Years) and At-Risk Patients (6 to 49 Years) (1 of 2 - PCV) 2009 HPV Vaccines (1 - 3-dose SCD M series) 2017 COVID-19 Vaccine (1 - 2023-2 5 season) 2025 Meningococcal B Vaccine Aged Out No l onger eligible based on patient's age to complete this topic Meningococcal Vaccine Aged Out No nhan anish eligible based on patient's age to complete this topic RSV Immunizations Under 20 Months Aged Out No longer eligible based on patient's age to complete this topic Insurance [facility]
--- OUTSIDE RECORDS SUMMARY | 2025-06-29 10:28 | XMS_ITS | Patient Health Record ---
Author Organization [facility] Address [address] [id number] Care Team Providers Care Senior Manager Creative Services Name Role Phone JOHN STILL Primary Care Provider Reason For Referral No Information Medications Medication SIG (Take, Route, Fr equency, Duration) Notes Start Date End Date Status Wellbutrin XL 150 MG 1 tablet in the mor rosi Orally Once a day Active Truvada 200-300 MG 1 tablet Orally Once a day; Duration: 30 day(s) Active traZODone HCl 50 MG 1 tablet at bedtime as needed Orally Once a day Active Social History Tobacco Use: Social History Observation Description Date Details (start date - stop date) Never Smoker NA - NA Tobacco Use/Smoking Question Answer Notes Are you a nonsmoker Alcohol Screen (Audit-C) Question Answer Notes Did you have a drink contain ing alcohol in the past year? Yes How often did you have a dri nk containing alcohol in the past year? 2 to 4 times a month (2 points) How many drinks did you have on a typical day when you were drinking in the past year? 1 or 2 drinks (0 point) Points 2 Interpretation Negative Problems Problem Type SNOMED Code ICD Code Onset Dates Problem Status W/U Status Risk Notes Problem Family history of ischemic heart disease (074566461) Family history of heart disease (Z82.49) Active confirmed Problem Insomnia (148580312) Insomnia, unspecified type (G47.00) Active confirmed Problem Exposure to sexually transmissible disorder (510488183) Possible exposure to STD (Z20.2) Active confirmed Problem Recurrent major depression in remission (70926315) Recurrent major depressive disorder, in partial remission (F33.41) Active confirmed Plan Of Treatment No Information Insurance Providers Payer Name Payer Address Payer Phone Subscriber Number Group Number Insured Name Patient Relationship to Insured Coverage Start Date Coverage End Date [facility] [id number] [address] [address] [place] [address] [id number] NONE JACKIE NGUYEN Self - patient is the insured 8 [facility] [address] [place] [address] [id number] JACKIE NGUYEN Self - patient is the insured 8 Medications Administered Medication Instructions Date of Administration Dosage Notes B12 1000mcg [facility] [place] 2] [id number] 10/08/2018 1 mL Clindamycin 150mg [facility] [place] 2] 40680-802-99 10/08/2018 1 mL Dexamethasone 4mg [facility] [place] 2] 59820-133-81 10/08/2018 1 mL Medical (General) History Medical History History ICD Code BACK ISSUES Surgical History Surgery Date(Month/Year) DISCECTOMY/ LAMINECTOMY 05/2017 Hospitalization History Reason Date(Month/Year) DENIED
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
[2025-06-29 10:43] LABS: Hemoglobin A1C 4.6 % (<5.7)
[2025-06-29 10:48] LABS: Lithium < 0.2 mmol/L (0.6-1.2)
[2025-06-29 10:51] LABS: Alanine Aminotransferase 26 U/L (6-50); Albumin Level 4.1 g/dL (3.5-5.1); Alkaline Phosphatase 90 U/L (38-126); Anion Gap 5 mmol/L (4-12); Aspartate Amino Transferase 29 U/L (17-59); Bilirubin,Total 0.4 mg/dL (0.2-1.3); Blood Urea Nitrogen 16 mg/dL (9-20); Calcium 9.0 mg/dL (8.4-10.2); Carbon Dioxide 30 mmol/L (22-30); Chloride 103 mmol/L (98-107); Cholesterol 213 mg/dL (0-200); Estimated Glomerular Filt Rate > 60; Glucose 96 mg/dL (65-110); HDL Direct 53 mg/dL; Potassium 5.2 mmol/L (3.4-5.0); Sodium 138 mmol/L (137-145); Total Protein 7.6 g/dL (6.3-8.2); Triglycerides 87 mg/dL (<150)
[2025-06-29 11:26] LABS: Thyroid Stimulating Hormone Reflex 0.926 uIU/mL (0.465-4.68)
== END 2025-06-29 09:53 | disposition home or self-care (01) ==
LOC: ANHLAB 09:56
PROVIDERS: PCP Internal Medicine; Visit Provider Nurse Practitioner Psychiatric/Mental Health
DX: F31.31 Bipolar disorder, current episode depressed, mild (principal); R41.1 Anterograde amnesia; R45.851 Suicidal ideations; R53.83 Other fatigue; E55.9 Vitamin D deficiency, unspecified; F12.90 Cannabis use, unspecified, uncomplicated; Z72.89 Other problems related to lifestyle; Z79.899 Other long term (current) drug therapy
CPT/HCPCS: 36415; 80053; 80061; 80178; 83036; 84443; 85025